=== PATIENT | female | born 1965 | race Caucasian/White ===

== ENCOUNTER 2021-01-31 09:25 | Inpatient (IN) | payer OTHER ==
[~2021-01-31] VITALS: Ht 165.1 cm; Wt 58.5 kg
[2021-01-31] VITALS (16 sets, daily range): BP systolic 90–129; BP diastolic 47–66
--- NOTE | 2021-01-31 09:25 | NUR ---
PT [id number] FRM HOME FOR ABDOMINAL DISCOMFORT, NAUSEA AND DIARRHEA. PT IS AAOX4, NOT IN RESPIRATORY DISTRESS, V/S STABLE, KEPT RESTED AND COMFORTABLE. WILL CONTINUE TO MONITOR.
--- NOTE | 2021-01-31 09:35 | NUR ---
PT SEEN AND EXAMINED BY .
--- NOTE | 2021-01-31 09:40 | NUR ---
ER PHLEB AT BEDSIDE FOR BLOOD DRAW.
[2021-01-31 10:38] LABS: BASOPHILS % (AUTO) 0.3 % (0.0-2.0); EOSINOPHILS % (AUTO) 1.7 % (0.0-6.0); HEMATOCRIT 32 % (33-45); HEMOGLOBIN 11.4 g/dL (11.5-14.8); LYMPHOCYTES # (AUTO) 0.2 /CMM (0.8-4.8); LYMPHOCYTES % (AUTO) 4.4 % (20.0-44.0); MEAN CORPUSCULAR HGB CONC 35 g/dl (31.0-36.0); MEAN CORPUSCULAR VOLUME 91 fL (82-100); MONOCYTES % (AUTO) 1.2 % (2.0-12.0); NEUTROPHILS # (AUTO) 3.5 /CMM (1.8-8.9); NEUTROPHILS % (AUTO) 92.4 % (43.0-81.0); PLATELET COUNT (AUTO) 144 /CMM (150-450); RED BLOOD CELL COUNT(AUTO) 3.55 MIL/uL (4.0-5.2); WHITE BLOOD COUNT (AUTO) 3.8 K/uL (4.3-11.0)
--- NOTE | 2021-01-31 10:42 | NUR ---
wheeled patient via [employer] accompanied by Home [employer] S[pecialists for ct.
[2021-01-31 10:52] LABS: BILIRUBIN,DIRECT 1.1 mg/dL (0.0-0.2); BILIRUBIN,TOTAL 1.5 mg/dL (0.2-1.0); CALCIUM, SERUM 7.5 mg/dL (8.5-10.1); CREATININE 0.5 mg/dL (0.6-1.3); TOTAL PROTEIN, SERUM 5.6 g/dL (6.4-8.2)
[2021-01-31 10:55] LABS: ALBUMIN 1.2 g/dL (3.4-5.0); POTASSIUM 1.4 mmol/L (3.5-5.1)
[2021-01-31] MEDS ORDERED: IV NS 0.9% 100 ML IV ONE (11:00)
[2021-01-31] MEDS ORDERED: POTASSIUM CL. PREMIX PERIPHER. 200 ML ONE (11:04)
[2021-01-31] MEDS ORDERED: Magnesium 1GM/D5W 100ML PREMIX 200 ML IV ONE (11:04)
--- NOTE | 2021-01-31 11:11 | NUR ---
CALLED DR. CRUMP
--- NOTE | 2021-01-31 11:21 | NUR ---
[facility] CALLED FIBERGLASS AUTOBODY REPAIRER PAGED.
[2021-01-31] MEDS: Magnesium 1GM/D5W 100ML PREMIX 100 ML IV SCH ×2 (11:23→12:00)
[2021-01-31] MEDS: POTASSIUM CL. PREMIX PERIPHER. 50 ML IV SCH ×11 (11:23→23:29)
[2021-01-31] MEDS ORDERED: IV NS 0.9% 1,000 ML BAG IV ONE (11:30)
--- NOTE | 2021-01-31 11:38 | NUR ---
GOT BED 256
[2021-01-31] MEDS ORDERED: METRONIDAZOLE 500MG/ NS 100ML 100 ML IV ONE (11:49)
[2021-01-31] MEDS ORDERED: IV Sodium Chloride 3% 500 ML 500 ML IV SCH (12:00)
[2021-01-31] MEDS ORDERED: PIPERACILLIN /TAZOBACTAM 3.375 G in IV D5W 50 ML IV ONE (12:00)
[2021-01-31] MEDS ORDERED: FLAGYL/NS RTU 500 MG/100 ML PIGGYBACK IV ONE (12:00)
--- NOTE | 2021-01-31 12:19 | NUR ---
CALLED DR. CRUMP [phone]
--- NOTE | 2021-01-31 12:33 | NUR ---
urine collected and sent to lab.
[2021-01-31 12:37] LABS: BILIRUBIN,URINE SMALL (NEGATIVE); COLOR,URINE YELLOW (YELLOW); LEUKOCYTE ESTERASE ,URINE Trace (NEGATIVE); NITRITE, URINE Positive (NEGATIVE); PROTEIN,URINE Trace mg/dl (NEGATIVE); UGLUCOSE Negative (NEGATIVE)
--- NOTE | 2021-01-31 12:38 | NUR ---
KENNETH CRUMP [phone]
[2021-01-31 12:45] LABS: BACTERIA,URINE Many /HPF (None Seen); SQUAMOUS EPITHELIAL CELL,UR Few /HPF (None Seen)
[2021-01-31] MEDS ORDERED: METRONIDAZOLE 500MG/ NS 100ML 500 MG in PREMIX 1 EA IV SCH ×2 (13:00→21:00)
[2021-01-31] MEDS ORDERED: IV Sodium Chloride 3% 500 ML 500 ML IV ONE (14:30)
[2021-01-31] MEDS ORDERED: Potassium Chloride 20 MEQ in IV NS 0.9% 1,000 ML IV SCH (14:30)
[2021-01-31] MEDS ORDERED: NOREPINEPHRINE 32 MG in IV NS 0.9% 218 ML IV PRN (14:30)
--- NOTE | 2021-01-31 14:43 | NUR ---
wheeled patient via gurney accompanied by RN and emt in no distress. RN assigned to patient at bedside to assume care.
--- NOTE | 2021-01-31 14:45 | NUR ---
BIOLOGY SPECIALIST RECEIVED PT FROM ER BY ANDREW WITH MONITOR. REPORT RECEIVED FROM COLOR ARTIST. PT CAME IN TO ER FOR ABDOMINAL PAIN. ADMITTED INTO ICU FOR PERFORATED BOWEL PT AWAKE AND ALERT, ABLE TO FOLLOW COMMANDS, MOVES ALL EXTREMITIES. C/O ABDOMINAL PAIN WITH MOVEMENT. ABDOMEN DISTENDED AND TENDER THROUGHOUT. PETECHIAE NOTED AROUND ABDOMEN EXTENDING FROM LOWER BREASTS TO PELVIC AREA. 3% NS INFUSING. PER LEFT FOREARM IV SITE. K RIDER INFUSING PER RIGHT A/C IV SITE.
[2021-01-31 16:14] LABS: CALCIUM, SERUM 7.4 mg/dL (8.5-10.1); CREATININE 0.4 mg/dL (0.6-1.3)
--- NOTE | 2021-01-31 16:15 | NUR ---
RN NOTES RECEIVED PT ON BED, A/Ox4, FOLLOWS COMMAND, ON 02 AT 2L , O2 SAT WNL, PT IS C/O ABDOMINAL PAIN , ABDOMEN IS DISTENDED AND HARD TO PAINFUL TO TOUCH, ON TELE SR , PT IS ABLE TO USE BEDPAN,R UPPER ARM PICC LINE SITE CLEAN,DRY AND INTACT, SR UP x3, CALL LIGHT WITHIN EASY REACH BED LOCKED AND IN LOWEST POSITION, CONTINUE TO MONITOR
[2021-01-31 16:19] LABS: POTASSIUM 1.7 mmol/L (3.5-5.1)
[2021-01-31] MEDS ORDERED: POTASSIUM CHLORIDE 10 MEQ/50 ML PREMIXED IVPB FOR PERIPHERAL LINE IV ONE (17:00)
--- NOTE | 2021-01-31 17:00 | NUR ---
RN NOTES DR LA AND DION PAGE NOITFED REGARDING K=1.7 , NEW ORDER RECEIVED , CONTINUE TO MONITOR.
[2021-01-31 17:15] LABS: CREATININE, URINE 14.8 MG/DL (30.0-125.0); URINE SODIUM, RANDOM 5 mmol/l (40-220)
[2021-01-31 17:29] LABS: CHOLESTEROL 115 mg/dL (<200); LDL 60 mg/dL (0-99); THYROID STIMULATING HORMONE 1.665 uIU/mL (0.358-3.74); TRIGLYCERIDES 161 mg/dL (30-150)
[2021-01-31 17:30] LABS: HDL CHOLESTEROL < 10 mg/dL (40-60)
[2021-01-31] MEDS ORDERED: PIPERACILLIN /TAZOBACTAM 3.375 G in IV D5W 50 ML IV SCH (18:00)
[2021-01-31] MEDS ORDERED: VANCOMYCIN 1 GM in IV D5W 250 ML IV SCH (18:00)
[2021-01-31 19:28] LABS: CALCIUM, SERUM 6.8 mg/dL (8.5-10.1); CREATININE 0.4 mg/dL (0.6-1.3)
[2021-01-31] MEDS: MEROPENEM 500 MG in IV NS 0.9% 50 ML IV SCH (21:46)
[2021-01-31 23:54] LABS: CALCIUM, SERUM 7.1 mg/dL (8.5-10.1); CREATININE 0.4 mg/dL (0.6-1.3)
[2021-01-31 23:57] LABS: POTASSIUM 2.3 mmol/L (3.5-5.1)
[2021-02-01] VITALS (37 sets, daily range): BP systolic 91–123; BP diastolic 45–75
[2021-02-01] MEDS: POTASSIUM CL. PREMIX PERIPHER. 50 ML IV SCH ×15 (00:28→22:14)
[2021-02-01] MEDS: VANCOMYCIN 0.75 GM in IV D5W 250 ML IV SCH ×3 (02:13→17:56)
--- NOTE | 2021-02-01 02:57 | NUR ---
patient in npo post mid nite to drain abdomen, poss. surgery.patients abdomen distended. patient received x 10 bags of 10 chirag of potassium. credical lab 0000 potassium 2.3 patient still receiving k-riders. sinus on monitor temp 97.4 voiding in bed adams no bowel movement
[2021-02-01] MEDS: MEROPENEM 500 MG in IV NS 0.9% 50 ML IV SCH ×3 (05:04→21:06)
[2021-02-01 05:18] LABS: BASOPHILS % (AUTO) 0.2 % (0.0-2.0); EOSINOPHILS % (AUTO) 2.4 % (0.0-6.0); HEMATOCRIT 27 % (33-45); HEMOGLOBIN 9.6 g/dL (11.5-14.8); LYMPHOCYTES # (AUTO) 0.3 /CMM (0.8-4.8); LYMPHOCYTES % (AUTO) 5.3 % (20.0-44.0); MEAN CORPUSCULAR HGB CONC 35 g/dl (31.0-36.0); MEAN CORPUSCULAR VOLUME 92 fL (82-100); MONOCYTES # (AUTO) 0.1 /CMM (0.1-1.30); MONOCYTES % (AUTO) 2.4 % (2.0-12.0); NEUTROPHILS # (AUTO) 4.5 /CMM (1.8-8.9); NEUTROPHILS % (AUTO) 89.7 % (43.0-81.0); PLATELET COUNT (AUTO) 118 /CMM (150-450); RED BLOOD CELL COUNT(AUTO) 2.93 MIL/uL (4.0-5.2)
[2021-02-01 05:27] LABS: CREATININE 0.4 mg/dL (0.6-1.3); MAGNESIUM 1.8 mg/dL (1.8-2.4)
[2021-02-01 05:32] LABS: PHOSPHORUS 0.7 mg/dL (2.5-4.9)
[2021-02-01 05:36] LABS: POTASSIUM 2.6 mmol/L (3.5-5.1)
--- NOTE | 2021-02-01 07:00 | NUR ---
RN NOTES RECEIVED PT ON BED, A/Ox4, FOLLOWS COMMAND, ON 02 AT 2L , O2 SAT WNL, ABDOMEN IS DISTENDED , HARD AND PAINFUL TO TOUCH, ON TELE SR , PT IS NPO FOR SURGERY TODAY, PT IS ABLE TO USE BEDPAN,R UPPER ARM PICC LINE SITE CLEAN,DRY AND INTACT, SR UP x3, CALL LIGHT WITHIN EASY REACH BED LOCKED AND IN LOWEST POSITION, CONTINUE TO MONITOR Addendum: 02/01/21 at 0714 by REGISTRY [facility] INPATIENT RN1 RN PLEASE DISREGARD ABOVE CHARTING ,
[2021-02-01] MEDS ORDERED: Sodium Phosphate 30 MMOL in IV NS 0.9% 250 ML IV SCH (07:30)
--- NOTE | 2021-02-01 08:39 | NUR ---
WOUND CARE CONSULT: REVIEWED CHART, NURSING DOCUMENTATION WHICH INDICATES INTACT SKIN WITH CURRENT GEMINI SCORE OF 22. WILL SEE PT PRN.
--- NOTE | 2021-02-01 08:51 | NUR ---
EXAM TO BE CANCELLED PER DR WATERS AFTER TALKING WITH ORDERING SKINNER PELTS MEI RAMIREZ
[2021-02-01] MEDS ORDERED: DIATR MEGLU/DIATRIZOATE SODIUM 30 ML BOTTLE (GASTROGRAPHIN) ONE ×2 (10:25→11:09)
[2021-02-01] MEDS ORDERED: IOHEXOL-300 100 ML VIAL IV ONE (10:25)
[2021-02-01] MEDS ORDERED: CT SWABBABLE VALVE TRANS SET 1 EA INFUS.SET MC ONE (10:26)
[2021-02-01] MEDS ORDERED: IV NS 0.9% 250 ML IV ONE (10:26)
--- NOTE | 2021-02-01 12:00 | NUR ---
RN NOTES PT REFUSED CT WITH CONTRAST ENEMA , DR Esteban LUND, CONTINUE TO MONITOR .
--- NOTE | 2021-02-01 13:00 | NUR ---
RN NOTES PT TOLERATED ORAL CONTRAST WELL, KUB WILL BE DONE, PER MD ORDER .
--- NOTE | 2021-02-01 18:00 | NUR ---
RN NOTES PT REMAINS NPO, A/Ox4, ON RA NO SOB NOTED, COMPLAIN OF ABDOMINAL PAIN AT TIME, VSS STABLE, SR UP x3, CALL LIGHT WITHIN EASY REACH, BED LOCKED AND IN LOWEST POSITION, WILL ENDORSE TO YOLK SPRAY DRIER NURSE FOR CONTINUITY OF CARE .
[2021-02-01 18:07] LABS: CALCIUM, SERUM 6.8 mg/dL (8.5-10.1); CREATININE 0.4 mg/dL (0.6-1.3)
--- NOTE | 2021-02-01 18:28 | NUR ---
RN NOTES DR LA NOTIFIED REGARDING 1800 BMP RESULT , NEW ORDER RECEIVED .
--- NOTE | 2021-02-01 20:00 | NUR ---
Received patient A/OX4.VS stable.ST 105-110.Breathing even and unlabored.On RA saturation 97%-98%.DX: Perforated Bowel/Sepsis.NPO status.Hypokalemic K+3.0 Potassium replacement in progress infusing via TYRELL PICC LINE and site intact.Will administer antibiotics as ordered. Incontinent of urine.Kept clean and dry.Patient refused villegas catheter.Patient turned in bed independently.Kept comfortable.
[2021-02-02] VITALS (20 sets, daily range): BP systolic 95–140; BP diastolic 51–78
[2021-02-02] MEDS: VANCOMYCIN 0.75 GM in IV D5W 250 ML IV SCH ×3 (01:51→17:37)
--- NOTE | 2021-02-02 02:00 | NUR ---
Patient resting in no acute distress.VS stable.Incontinent of urine and stool.Perineal care done. Anette bath done and complete linens changed.Turned and repositioned to comfort.Continue monitoring.
[2021-02-02] MEDS: MEROPENEM 500 MG in IV NS 0.9% 50 ML IV SCH ×2 (05:00→12:17)
[2021-02-02] MEDS: IV NS 0.9% 250 ML IV PRN (05:21)
--- NOTE | 2021-02-02 07:05 | NUR ---
PARCEL WRAPPER Bedside report taken from [facility] nurse Espinosa RN. pt awake, alert and oriented x4 and resting comfortable in bed. pt on room air, tolerating well. spo2 100%, lung sounds clear. pt npo at this time, bowel sounds present. pt stach on monitor hr 100-105. pt is incontinent of urine, skin intact. pt moves bue and ble 3/5 and has generalized weakness. all lines traced. all drips verified. vitals stable. safety measures in place. will continue to monitor.
--- NOTE | 2021-02-02 07:27 | NUR ---
Patient resting remains tachycardic 105-110.Tachypneic 30's.Highest temp 99.6.No nausea or vomiting noted.With tolerable abdominal pain when she moves.Abdomen distended tender on palpation.All due medications administered.Report given to day shift for DANIAL.
[2021-02-02 08:04] LABS: BASOPHILS % (AUTO) 0.2 % (0.0-2.0); HEMATOCRIT 28 % (33-45); HEMOGLOBIN 9.9 g/dL (11.5-14.8); LYMPHOCYTES # (AUTO) 0.3 /CMM (0.8-4.8); LYMPHOCYTES % (AUTO) 6.3 % (20.0-44.0); MEAN CORPUSCULAR HGB CONC 35 g/dl (31.0-36.0); MEAN CORPUSCULAR VOLUME 92 fL (82-100); MONOCYTES # (AUTO) 0.2 /CMM (0.1-1.30); MONOCYTES % (AUTO) 2.9 % (2.0-12.0); NEUTROPHILS # (AUTO) 4.9 /CMM (1.8-8.9); NEUTROPHILS % (AUTO) 88.6 % (43.0-81.0); PLATELET COUNT (AUTO) 131 /CMM (150-450); RED BLOOD CELL COUNT(AUTO) 3.08 MIL/uL (4.0-5.2); WHITE BLOOD COUNT (AUTO) 5.5 K/uL (4.3-11.0)
[2021-02-02 08:28] LABS: CALCIUM, SERUM 6.9 mg/dL (8.5-10.1); CREATININE 0.4 mg/dL (0.6-1.3)
[2021-02-02 08:32] LABS: POTASSIUM 2.8 mmol/L (3.5-5.1)
[2021-02-02 08:34] LABS: BILIRUBIN,TOTAL 0.8 mg/dL (0.2-1.0); MAGNESIUM 1.7 mg/dL (1.8-2.4); PHOSPHORUS 1.5 mg/dL (2.5-4.9)
[2021-02-02 08:35] LABS: ALBUMIN 1.1 g/dL (3.4-5.0)
[2021-02-02 09:31] LABS: BAND % (MANUAL) 1 % (0.0-5.0); EOSINOPHILS % (MANUAL) 2 % (0-4); LYMPHOCYTES % (MANUAL) 5 % (16-48); MONOCYTES % (MANUAL) 2 % (0-11.0); MYELOCYTES % 2 % (0-0); NEUTROPHILS % (MANUAL) 88 (42-76)
--- NOTE | 2021-02-02 09:35 | NUR ---
HANDLE FINISHER 0953- Radiologist Dr Stafford called with critical results regarding CT abd, results read back and verified. see MD notes/ radiology reports. Dr Martin called to inform of results, per md notify surgeon. no new orders at this time. 1010- Dr Selvin Zaldivar messaged and made aware of critical results regarding CT abd. latest labs and vitals given to md. aware k 2.8 and that 6 bags kcl ordered, 1 gm mag ordered and na phos ordered by dr martin, ok per md. no new orders at this time. 1025- Dr Herrmann made aware of critical results regarding CT abd. aware that Dr Martin and Dr Zaldivar aware, ok per md. no new orders at this time.
[2021-02-02] MEDS: POTASSIUM CL. PREMIX PERIPHER. 50 ML IV SCH ×6 (09:50→14:35)
[2021-02-02] MEDS: IV NS 0.9% 1,000 ML IV PRN (11:15)
[2021-02-02] MEDS: Magnesium 1GM/D5W 100ML PREMIX 100 ML IV SCH ×2 (14:34→16:03)
[2021-02-02 15:04] LABS: CALCIUM, SERUM 6.5 mg/dL (8.5-10.1); CREATININE 0.4 mg/dL (0.6-1.3); POTASSIUM 4.1 mmol/L (3.5-5.1)
--- NOTE | 2021-02-02 15:39 | NUR ---
WHEEL FITTER pt had bm x1 moderate size brown and loose. pt bathed and cleaned. linen change done. skin check done with charge nurse Nohemy GONZALEZ, no new wounds noted. skin intact. pt tolerated well. vitals stable. safety measures in place. pt was informed that per surgeon he wants an ngt to be inserted and put to suction to help relieve gas and abd distention and that pt was to go to surgery 02/03/2021, pt refused ngt placement dispite education on importance of tube placement, charge nurse at bedside discussing the placement of the ngt with pt, pt still refuses ngt placement. Dr Sohail Zaldivar aware, ok per . no new orders at this time.
[2021-02-02] MEDS ORDERED: Sodium Phosphate 15 MMOL in IV NS 0.9% 245 ML IV SCH (17:30)
[2021-02-02 17:58] LABS: MAGNESIUM 2.5 mg/dL (1.8-2.4); PHOSPHORUS 1.4 mg/dL (2.5-4.9)
--- NOTE | 2021-02-02 18:35 | NUR ---
NAIL CUTTER pt signed consent for exlap procedure per dr barba,consent for procedure, consent for anesthesia and consent for blood transfusion signed by pt, surgery packet checked and reviewed with charge nurse Nohemy GONZALEZ and placed in pt chart.
[2021-02-02] MEDS ORDERED: ANESTHESIA TRAY IN PYXIS 1 EA TRAY MC ONE (18:59)
[2021-02-02] MEDS ORDERED: HYDROMORPHONE INJ 2 MG/ML DISP.SYRIN ONE (18:59)
[2021-02-02] MEDS ORDERED: MIDAZOLAM HCL 2 MG/2ML VIAL ONE (18:59)
[2021-02-02] MEDS ORDERED: ROCURONIUM BROMIDE 50 MG/5 ML ONE ×2 (19:00→22:04)
--- NOTE | 2021-02-02 19:03 | NUR ---
RESIDENTIAL SOLAR CONSULTANT Bedside report given to [facility] nurse Jensen GONZALEZ. pt awake, alert and resting comfortable in bed. pt on room air, tolerating well. all lines traced. all drips verified. safety measures in place. no signs of acute distress at this time. pt to be taken to OR shortly for ex lap procedure, all consents signed in chart, endorsed to [facility] nurse.
--- NOTE | 2021-02-02 19:05 | NUR ---
RECEIVED PT ON BED AWAKE FLAT AFFECT, AA/O X3 ABLR TO VERBALIZED NEEDS ON ROOM AIR SPO2 98% NO COMPLAINT OF SOB AND PAIN, TELE MONITOR READ SINUS TACHY 110'S HAVE DISTENDED ABDOMEN, HAVE TYRELL PICC WITH ONGOING Na-PHOS @ 63.33 ML/HR INFUSING WELL AND NS @ 125ML/HR INFUSING WELL, BED ON LOWEST POSITION AND LOCKED SIDE RAILS UP X 2 CALL LIGHT WITHIN REACH WILL CONT TO MONITOR
--- NOTE | 2021-02-02 19:30 | NUR ---
OR STAFF CAME TO RIGGER CHIEF TH PT FOR PROCEDURE TONHAILEY CRUMP ALSO ON BEDSIDE AND EXPLAIN THE PT THE PROCEDURE, PT VERBALIZED UNDERSTANDING WITHH AA/O X3, V/S CHECKED AND RECORDED TEMP 97.8 SPO2 99% BP 104/62 HR 109, CONSENT FORM AND PRE OP CHECKLIST ON CHART, ON ROUTE TO OR VIA HOSPITAL BED ON ACLS PROTOCOL.
[2021-02-02] MEDS ORDERED: LIDOCAINE 1% INJ 50 ML MDV IJ ONE (20:06)
[2021-02-02] MEDS ORDERED: METHYLENE BLUE 10 ML VIAL ONE (21:00)
[2021-02-02] MEDS ORDERED: Sodium Phosphate 30 MMOL in IV NS 0.9% 250 ML IV SCH (21:00)
[2021-02-02] MEDS ORDERED: NOREPINEPHRINE 8MG/250ML RTU 250 ML IV ONE (23:56)
[2021-02-03] VITALS (87 sets, daily range): BP systolic 83–151; BP diastolic 42–89
[2021-02-03] MEDS: MEROPENEM 500 MG in IV NS 0.9% 50 ML IV SCH ×4 (00:14→20:36)
--- NOTE | 2021-02-03 00:37 | NUR ---
PT IS STILL ON OPERATING ROOM FOR HER SURGERY
[2021-02-03] MEDS: NOREPINEPHRINE 8 MG in IV NS 0.9% 242 ML IV PRN ×2 (01:00→08:51)
--- NOTE | 2021-02-03 01:00 | NUR ---
INTUBATED PT WITH ETT 7.0 SECURED @ 22 CM LIPLINE WAS TRANSPORTED FROM PACU TO ICU. PLACED ON VENT WITH THE SETTINGS OF AC 12,450, 100% PT IS SEDATED. EQUAL BILATERAL BREATH SOUNDS AND CHEST RISE NOTED. SUCTIONED SMALL AMOUNT OF WHITE THIN SECRETIONS. NO RESPIRATORY DISTRESS NOTED AT THIS TIME. VENT PLUGGED INTO RED OUTLET, ALARMS ON AND AUDIBLE. WILL CONTINUE TO MONITOR T/O SHIFT.
--- NOTE | 2021-02-03 01:00 | NUR ---
RECEIVED PT FROM OR VIA HOSPITAL BED INTUBATED AND ON VENT WITH SETTING AC 12 TV 450 FIO2 100 0 PEEP WITH SPO2 100% ACCOMPANIED BY ANESTHESIOLOGIST AND OR NURSE, PT STILL SEDATED FROM SURGERY SEDATION, HOOKED TO BEDSIDE MONITOR V/S CHECKED AND RECORDED, PT HAVE 2 BENITA DRAIN ON RIGHT LOWER ABDOMEN WITH SANGUINEOUS FLUID DRAINING, PT ALSO HAVE COLOSTOMY BAG WITH MINIMAL LIQUID BOWEL MOVEMENT NOTED, PT HAVE ZACARIAS CATHETER WITH YELLOW URINE ON THE BAG AND GREENISH FLUID ON THE TUBING,PATIENT HAVE ONGOING LEVOPHED @ 0.1 MCG/KG/MIN INFUSING WELL, SECURE AN ORDER FROM ANESTHESIOLOGIST TO START BILATERAL WRIST SOFT RESTRAINTS FOR SELF EXTUBATION PRECAUTION, AND DIPRIVAN DRIP TO TITRATE PER PROTOCOL ,BED ON LOWEST POSITION AND LOCKED SIDE RAILS UP X2 WILL CONT TO MONITOR THE PT
[2021-02-03] MEDS: IV NS 0.9% 1,000 ML IV PRN ×3 (01:13→22:32)
[2021-02-03] MEDS ORDERED: PROPOFOL 100 ML IV PRN (01:30)
--- NOTE | 2021-02-03 02:00 | NUR ---
DR. CRUMP SEEN THE PT AND ORDER TO CONTINUE ALL MEDICATION PRE SURGERY NOTED AND CARRIED OUT Addendum: 02/03/21 at 0250 by THAO SUNG RN ALSO INFORMED HOSPITALIST ABOUT THE SURGERY OF THE PT AND CURRENT CONDITION
[2021-02-03 02:07] LABS: ABG BASE EXCESS -5.6 mmol/L; ABG OXYGEN SATURATION 99.7 % (92.0-98.5); ABG PCO2 56.7 mmHg (35.0-45.0); ABG PO2 528.4 mmHg (75.0-100.0); AaDO2 127.9 mmHg; COHb 0.5 % (0.5-1.5); MetHb 0.2 % (0.0-1.5); SITE, ABG Right Radial; VT, ABG 450 mL
[2021-02-03] MEDS: VANCOMYCIN 0.75 GM in IV D5W 250 ML IV SCH ×2 (02:10→09:40)
[2021-02-03 04:22] LABS: BASOPHILS % (AUTO) 0.2 % (0.0-2.0); HEMATOCRIT 24 % (33-45); LYMPHOCYTES # (AUTO) 0.3 K/uL (0.8-4.8); LYMPHOCYTES % (AUTO) 6.6 % (20.0-44.0); MEAN CORPUSCULAR HGB CONC 34 g/dl (31.0-36.0); MEAN CORPUSCULAR VOLUME 95 fL (82-100); MONOCYTES # (AUTO) 0.2 K/uL (0.1-1.30); MONOCYTES % (AUTO) 3.7 % (2.0-12.0); NEUTROPHILS # (AUTO) 4.2 K/uL (1.8-8.9); NEUTROPHILS % (AUTO) 89.5 % (43.0-81.0); PLATELET COUNT (AUTO) 131 K/uL (150-450); RED BLOOD CELL COUNT(AUTO) 2.49 MIL/uL (4.0-5.2); WHITE BLOOD COUNT (AUTO) 4.7 K/uL (4.3-11.0)
[2021-02-03 04:33] LABS: CALCIUM, SERUM 6.2 mg/dL (8.5-10.1); CREATININE 0.8 mg/dL (0.6-1.3); POTASSIUM 4.4 mmol/L (3.5-5.1)
[2021-02-03 05:35] LABS: PHOSPHORUS 5.5 mg/dL (2.5-4.9)
--- NOTE | 2021-02-03 06:42 | NUR ---
PT ON BED STILL SEDATED FROM SURGERY SEDATION ON ETT/VENT SETTING PER MD FIO2 40% SPO2 100% NO PAIN NOTED, TELEMONITOR READS SINUS RHTHM 95, STILL ON LEVOPHED@0.2 MCG/KG/MIN WITH LATEST BP 115/71, BENITA DRAIN X2 ON RIGHT LOWER ABDOMEN DRAINING SANGINEOUS FLUID OUTPUT 200 ML, ZACARIAS CATHETER HAVE GREENISH FLUID OUTPUT ON TUBING, BED ON LOWEST POSITION AND LOCKED SIDE RAILS UP X 2 CALL LIGHT WITHIN REACH WILL CONT TO MONITOR
--- NOTE | 2021-02-03 07:40 | NUR ---
ICU/RN PT IS INTUBATE ON THE VENT AC MODE ,FIO2-60%.SAT O2-100%.NOT SEDATED.RESPONDING ON PAIN STIMULATION.POST OP LAST NIGHT.ON LEVOPHED DRIP.IV FLUIDS.RIGHT UPPER ARM PICC LINE.WITH NO BLOOD RETURN FROM 3 PORTS.NG TUBE CONNECTED TO SUCTION WITH BLOODY OUTPUT. HAS 2 BENITA DRAINAGES WITH BLOODY OUTPUT.GENERALIZED EDEMA PRESENT.NEW COLOSTOMY DRAINING WITH BROWN LIQUID STOOL.F/C DRAINING WITH MINIMAL AMOUNT OF GREEN URINE. LABS REVIEW.MF AWARE.AFEBRILE.NO PAIN REPORTED AT THIS TIME.
[2021-02-03] MEDS ORDERED: MEROPENEM 500 MG in IV NS 0.9% 50 ML IV SCH (08:00)
[2021-02-03] MEDS ORDERED: IV NS 0.9% 1,000 ML IV ONE (08:30)
[2021-02-03] MEDS ORDERED: TPN/PPN PER PHARMACY XX PRN (09:00)
[2021-02-03 09:42] LABS: ABG BASE EXCESS -8.2 mmol/L; ABG OXYGEN SATURATION 98.8 % (92.0-98.5); ABG PCO2 28.2 mmHg (35.0-45.0); ABG PH 7.375 (7.350-7.450); ABG PO2 136.3 mmHg (75.0-100.0); AaDO2 116.5 mmHg; COHb 0.8 % (0.5-1.5); MetHb 0.5 % (0.0-1.5); O2Hb 97.5 % (94.0-97.0); PEEP,BG 5 cm H2O; SITE, ABG Right Radial; VENT MODE, BG SIMV 4 PSV 15
--- NOTE | 2021-02-03 10:00 | NUR ---
ICU.RN PT IS EXTUBATED.PLACED ON 3L N/C . SAT O2-98%. AWAKE,ALERT.NO PAIN REPORTED AT THIS TIME. 1 L NS BOLUS GIVEN ORDERED. CONTINUE MONITORING.
--- NOTE | 2021-02-03 10:10 | NUR ---
pt extubated per MD order. zero distress noted. strong cough. placed on 3lpm n/c. RN aware.
[2021-02-03] MEDS ORDERED: DEXTROSE 50%-WATER 50 ML DISP.SYRIN IV PRN (10:30)
[2021-02-03] MEDS: FLUCONAZOLE IN NS 200 MG in PREMIX 1 EA IV SCH (10:55)
[2021-02-03] MEDS ORDERED: DC PROPOFOL WHEN EXTUBATED XX SCH (11:00)
[2021-02-03] MEDS: BLOOD SUGAR DIAGNOSTIC 1 EACH STRIP IN SCH ×2 (11:49→17:21)
--- NOTE | 2021-02-03 12:10 | NUR ---
ICU/RN TPN STARTED ORDERED. DUE MEDS ARE GIVEN ORDERED.
[2021-02-03] MEDS: INSULIN REGULAR, HUMAN 100 UNIT/ML 3 ML VIAL SQ PRN ×2 (12:42→18:21)
[2021-02-03] MEDS ORDERED: TPN BAG #1 IV SCH (14:00)
[2021-02-03 14:07] LABS: *SPE A/G RATIO 0.5 (0.7-1.7); *SPE ALBUMIN 1.5 g/dL (2.9-4.4); *SPE ALPHA-1-GLOBULIN 0.5 g/dL (0.0-0.4); *SPE ALPHA-2-GLOBULIN 1.2 g/dL (0.4-1.0); *SPE BETA GLOBULIN 0.7 g/dL (0.7-1.3); *SPE M-SPIKE Not Observed g/dL (Not Observed); *SPEGAMMA GLOBULIN 0.6 g/dL (0.4-1.8)
--- NOTE | 2021-02-03 19:30 | NUR ---
RN NOTES Received patient in bed AxO3 able to make needs known. Continues on O2, 3Lpm via NC saturating 97% at this time. breathing normal no SOB noted. Patient denies any pain or discomfort. Tele monitor reading SR HR in 90's. Lt Nars NG tube intact on low intermittent suction. TYRELL PICC line with ongoing NS @100ML/HR and TPN @ 40 infusing well, BENITA drain patent/Intact. Colotomy intact noted with minimal drainage. F/C intact dark urine draining via gravity. All safety measures in place, call light within reach. Will cont to monitor for belen.
[2021-02-03] MEDS: MORPHINE SULFATE INJ 2 MG/ML DISP.SYRIN IV PRN (22:28)
[2021-02-04] VITALS (84 sets, daily range): BP systolic 96–142; BP diastolic 44–74
[2021-02-04] MEDS: BLOOD SUGAR DIAGNOSTIC 1 EACH STRIP IN SCH ×4 (01:23→18:09)
[2021-02-04] MEDS: NOREPINEPHRINE 8 MG in IV NS 0.9% 242 ML IV PRN (01:25)
[2021-02-04] MEDS: INSULIN REGULAR, HUMAN 100 UNIT/ML 3 ML VIAL SQ PRN ×3 (01:32→13:01)
[2021-02-04 04:46] LABS: BASOPHILS % (AUTO) 0.1 % (0.0-2.0); EOSINOPHILS % (AUTO) 0.4 % (0.0-6.0); LYMPHOCYTES # (AUTO) 0.4 K/uL (0.8-4.8); LYMPHOCYTES % (AUTO) 12.2 % (20.0-44.0); MEAN CORPUSCULAR HGB CONC 35 g/dl (31.0-36.0); MEAN CORPUSCULAR VOLUME 94 fL (82-100); MONOCYTES # (AUTO) 0.2 K/uL (0.1-1.30); MONOCYTES % (AUTO) 5.9 % (2.0-12.0); NEUTROPHILS # (AUTO) 2.3 K/uL (1.8-8.9); NEUTROPHILS % (AUTO) 81.4 % (43.0-81.0); RED BLOOD CELL COUNT(AUTO) 2.05 MIL/uL (4.0-5.2); WHITE BLOOD COUNT (AUTO) 2.9 K/uL (4.3-11.0)
[2021-02-04 04:51] LABS: HEMATOCRIT 19 % (33-45); HEMOGLOBIN 6.6 g/dL (11.5-14.8)
--- NOTE | 2021-02-04 04:55 | NUR ---
RN NOTES Critical lab value reported by Renetta Hbg-6.6, Hct-19, Calcium-5.7. MD Norman notified new order received noted and carried out.
[2021-02-04] MEDS: MEROPENEM 500 MG in IV NS 0.9% 50 ML IV SCH ×3 (05:04→20:30)
[2021-02-04 05:22] LABS: CREATININE 1.2 mg/dL (0.6-1.3); MAGNESIUM 1.6 mg/dL (1.8-2.4); POTASSIUM 2.9 mmol/L (3.5-5.1)
[2021-02-04 05:23] LABS: PLATELET COUNT (AUTO) 129 K/uL (150-450)
[2021-02-04 05:27] LABS: CALCIUM, SERUM 5.7 mg/dL (8.5-10.1)
[2021-02-04 05:38] LABS: BAND % (MANUAL) 3 % (0.0-5.0); LYMPHOCYTES % (MANUAL) 7 % (16-48); MONOCYTES % (MANUAL) 6 % (0-11.0); NEUTROPHILS % (MANUAL) 84 (42-76)
--- NOTE | 2021-02-04 06:31 | NUR ---
RN NOTES Patient continues on NGT intermittent suction. BENITA tube intact darning well, F/C draining greenish urine. Breathing normal no SOB noted. No s/s of distress noted. AM care provided. Turning repositioning as tolerated. During shift PRN Morphine given noted be effective. TYRELL PICC line intact fluids running well. All safety measures in place, call light within reach. Will endorse to AM nurse for DANIAL.
[2021-02-04] MEDS: MORPHINE SULFATE INJ 2 MG/ML DISP.SYRIN IV PRN (07:38)
--- NOTE | 2021-02-04 08:05 | NUR ---
OPENING NOTE: REPORT RECEIVED FROM KATERINE GONZALEZ. PER REPORT PATIENT HAD SURGERY ON 02/03/21. PT HAS 2 JPS, OBSERVED AND COMPRESSED PER MD ORDERS, COLOSTOMY INTACT AND DRAINING LIQUID BROWN BM. ZACARIAS CATHETER PATENT, DRAINING GREEN URINE FROM DYE DURING SURGERY. PT C/O PAIN RATING 7/10, PAIN MEDICATION GIVEN PER MD ORDERS. NG TUBE TO LIS. ORAL CARE DONE, LIP BALM APPLIED TO LIPS. PT IS ALERT OX4 AND COOPERATIVE. PT CHECKED ON HOURLY AND PRN BY NURSING STAFF.
[2021-02-04] MEDS ORDERED: Calcium Gluconate 1GM/10ML 4.65 MEQ in IV D5W 50 ML IV ONE (08:30)
[2021-02-04] MEDS: IV NS 0.9% 250 ML IV PRN (09:19)
[2021-02-04] MEDS: IV NS 0.9% 1,000 ML IV PRN ×2 (09:19→21:31)
[2021-02-04] MEDS: POTASSIUM CL. PREMIX PERIPHER. 50 ML IV SCH ×8 (09:38→17:58)
[2021-02-04] MEDS ORDERED: VANCOMYCIN 0.75 GM in IV D5W 250 ML IV SCH (10:00)
[2021-02-04] MEDS: FLUCONAZOLE IN NS 200 MG in PREMIX 1 EA IV SCH (10:32)
--- NOTE | 2021-02-04 11:30 | NUR ---
PER PHARMACY, DO NOT GIVE 10AM VANCO DOSE D/T TROUGH OF 22
[2021-02-04] MEDS: Magnesium 1GM/D5W 100ML PREMIX 100 ML IV SCH ×2 (11:56→13:02)
[2021-02-04] MEDS ORDERED: TPN BAG #2 IV SCH (14:00)
[2021-02-04] MEDS: FAT EMULSION 20% 500 ML in PREMIX 1 EA IV SCH (18:09)
--- NOTE | 2021-02-04 18:57 | NUR ---
END OF SHIFT NOTE: PT HAD A FAIRLY UNEVENTFUL SHIFT. OUTPUT TOTALS FOR TODAY: ZACARIAS CATHETER = 750ML BENITA #1 = 85ML BENITA #2 = 50 ML OSTOMY = 25ML NG TUBE = 750ML GIVEN THIS SHIFT: 80MEQ POTASSIUM CHLORIDE IV 2GM MAG TPN INCREASED TO 50ML/HR LIPIDS STARTED AAT 1800 IVF NS INCREASED TO 125ML/HR PT ONLY REQUIRED PAIN MEDICATION X1 TODAY. PT REFUSED TO BE REPOSITIONED SEVERAL TIMES TODAY. RN INSTRUCTED PT ON SPLINTING HER ABD WHEN COUGHING. PT REMAINED ALERT OX4 TODAY WITHOUT DIFFICULTY. PT CHECKED ON HOURLY AND PRN BY NURSING STAFF.
--- NOTE | 2021-02-04 19:20 | NUR ---
FRAME REPAIRER RCD PT S/P 02/03 LAPAROSCOPIC CONVERTED TO MINI OPEN EXPLORATION, SIGMOIDECTOMY AND LOW ANTERIOR RESECTION, LEFT SIDED TUBAL LIGATION, FLEXIBLE CYTOSCOPY AND STENT PLACEMENT. PT IS A/O x2. RESISTANT TO CARE. NSR ON MONITOR. BENITA #1 DRAINING SANGUINEOUS OUTPUT BENITA #2 SEROSANGUINEOUS OUTPUT NOTED. PT NPO. TYRELL PICC LINE DIFFICULT TO FLUSH NO BLOOD RETURN. NS @ 125 ML/HR, TPN @ 50 ML/HR, LIPIDS @ 20 ML/HR, NS @ TKO RUNNING. ATTEMPTED TO ASSESS PT AND PT SAID IT WAS TIME FOR HER TO SLEEP. EXPLAINED TO PT IT WAS NECESSARY TO ASSESS HER AND TO CHECK HER LINES AND DRAINS. PT BECAME UPSET AND REFUSED A FULL SKIN ASSESSMENT. NURSING UNABLE TO COMPLETE ASSESSMENT.
[2021-02-04] MEDS: VANCOMYCIN 0.75 GM in IV D5W 250 ML IV SCH (21:31)
--- NOTE | 2021-02-04 22:00 | NUR ---
TANK STAVE ASSEMBLER PT REFUSED TO BE TURNED AND REPOSITIONED. EDUCATED ON THE RISKS OF DEVELOPING BED SORES. PT STATES SHE WILL GO TO SLEEP NOW.
[2021-02-05] VITALS (27 sets, daily range): BP systolic 127–157; BP diastolic 57–88
--- NOTE | 2021-02-05 | NUR ---
HOSPITAL CLINIC ASSISTANT PT REFUSED TO BE TURNED AND REPOSITIONED. EDUCATED ON THE RISKS OF DEVELOPING BED SORES.
[2021-02-05] MEDS: BLOOD SUGAR DIAGNOSTIC 1 EACH STRIP IN SCH ×5 (00:05→23:36)
--- NOTE | 2021-02-05 00:05 | NUR ---
ANCHOR OPERATOR PT DECLINED ACCU CHECK, SHE IS NOT DIABETIC. EXPLAINED TO PT IT IS NEEDED BECAUSE OF THE MEDICATION SHE IS ON. BUT SHE CONTINUED TO REFUSE.
--- NOTE | 2021-02-05 02:00 | NUR ---
MOBILE HOME PARK MANAGER PT REFUSED TO BE TURNED AND REPOSITIONED. EDUCATED ON THE RISKS OF DEVELOPING BED SORES. PT STATES SHE WILL WAIT FOR THE OTHER NURSE.
--- NOTE | 2021-02-05 04:00 | NUR ---
HEAD OF CONSERVATION PT REFUSED TO BE TURNED AND REPOSITIONED. EDUCATED ON THE RISKS OF DEVELOPING BED SORES. PT STATES SHE KNOWS WHAT SHE IS DOING.
[2021-02-05] MEDS: MEROPENEM 500 MG in IV NS 0.9% 50 ML IV SCH ×3 (04:15→21:00)
[2021-02-05 05:39] LABS: CALCIUM, SERUM 6.5 mg/dL (8.5-10.1); CREATININE 1.1 mg/dL (0.6-1.3); MAGNESIUM 2.1 mg/dL (1.8-2.4); PHOSPHORUS 2.3 mg/dL (2.5-4.9); POTASSIUM 3.1 mmol/L (3.5-5.1)
--- NOTE | 2021-02-05 05:50 | NUR ---
SOC ANALYST PT CONTINUED TO DECLINE TO BE TURNED AND REPOSITIONED. ALSO REFUSED PROPER ASSESSMENT.
--- NOTE | 2021-02-05 06:36 | NUR ---
SITE TECHNICIAN BENITA 1 30 ML OUTPUT BENITA 2 30 ML OUTPUT
[2021-02-05] MEDS: IV NS 0.9% 1,000 ML IV PRN (06:50)
--- NOTE | 2021-02-05 07:15 | NUR ---
BUSINESS INTELLIGENCE REPORTING ANALYST OPENING NOTE RECEIVED REPORT FROM PM NURSE. PT S/P SURG 02/03 LAPAROSCOPIC CONVERTED TO MINI OPEN EXPLORATION, SIGMOIDECTOMY AND LOW ANTERIOR RESECTION, LEFT SIDED TUBAL LIGATION, FLEXIBLE CYTOSCOPY AND STENT PLACEMENT. PT IS A/O x2. RESISTANT TO CARE.REFUSED TO TURN AND REPOSITION AND SCD,SKIN ASSESSMENT. NSR ON MONITOR. BENITA #1 BENITA #2 SEROSANGUINEOUS OUTPUT NOTED. PT NPO.ON LOW INTERMITTENT NGT SUCTION WITH GREENISH OUTPUT. TYRELL PICC LINE NO BLOOD RETURN. NS @ 125 ML/HR, TPN @ 50 ML/HR, LIPIDS @ 20 ML/HR, NS @ TKO RUNNING.SAFETY AND ASPIRATION MEASURES IN PLACE.BED IS LOW AND IN LOCKED POSITION.CALL LIGHT IN REACH.BED ALARM ON.SRX3.WILL CONTINUE TO MONITOR.
--- NOTE | 2021-02-05 07:20 | NUR ---
BOWSTRING MAKER PT DENIED PAIN ALL THROUGHOUT SHIFT. DECLINED PAIN MEDS.
[2021-02-05] MEDS ORDERED: Sodium Phosphate 30 MMOL in IV NS 0.9% 250 ML IV SCH (07:30)
[2021-02-05] MEDS: POTASSIUM CL. PREMIX PERIPHER. 50 ML IV SCH ×4 (08:13→16:26)
[2021-02-05] MEDS: IV LR 1000 ML 1,000 ML IV PRN (08:13)
[2021-02-05 08:35] LABS: BASOPHILS % (AUTO) 0.1 % (0.0-2.0); EOSINOPHILS % (AUTO) 1.7 % (0.0-6.0); HEMATOCRIT 22 % (33-45); HEMOGLOBIN 7.5 g/dL (11.5-14.8); LYMPHOCYTES # (AUTO) 0.4 K/uL (0.8-4.8); LYMPHOCYTES % (AUTO) 11.2 % (20.0-44.0); MEAN CORPUSCULAR HGB CONC 35 g/dl (31.0-36.0); MEAN CORPUSCULAR VOLUME 91 fL (82-100); MONOCYTES # (AUTO) 0.3 K/uL (0.1-1.30); MONOCYTES % (AUTO) 9.2 % (2.0-12.0); NEUTROPHILS # (AUTO) 2.8 K/uL (1.8-8.9); NEUTROPHILS % (AUTO) 77.8 % (43.0-81.0); PLATELET COUNT (AUTO) 90 K/uL (150-450); RED BLOOD CELL COUNT(AUTO) 2.36 MIL/uL (4.0-5.2); WHITE BLOOD COUNT (AUTO) 3.6 K/uL (4.3-11.0)
--- NOTE | 2021-02-05 09:30 | NUR ---
HYDRATE CONTROL TENDER NOTE seen by ,updated about patient condition with labs and decreased platelet count.WILL CONTINUE TO MONITOR.
[2021-02-05 09:53] LABS: EOSINOPHILS % (MANUAL) 2 % (0-4); LYMPHOCYTES % (MANUAL) 8 % (16-48); MONOCYTES % (MANUAL) 7 % (0-11.0); NEUTROPHILS % (MANUAL) 83 (42-76)
[2021-02-05] MEDS ORDERED: TPN IV SCH (10:00)
[2021-02-05] MEDS: FLUCONAZOLE IN NS 200 MG in PREMIX 1 EA IV SCH (10:31)
--- NOTE | 2021-02-05 11:48 | NUR ---
RISK CONTROL MANAGER NOTE SEEN BY ,UPDATED ABOUT PATIENT CONDITIN.RECEIVED ORDER TO DECREASE LR RATE TO 50ML/HR.NEBULIZATIONS PRN Q6H,INCENTIVE SPIROMETRY.WILL CONTINUE TO MONITOR.
[2021-02-05] MEDS ORDERED: ALBUTEROL FS 2.5 MG/0.5 ML VIAL.NEB NEB PRN (12:00)
[2021-02-05] MEDS: IPRATROPIUM NEB FS 0.5 MG/2.5 ML AMPUL.NEB NEB PRN (14:08)
[2021-02-05] MEDS: PANTOPRAZOLE 40 MG VIAL IV SCH (14:30)
--- NOTE | 2021-02-05 15:25 | NUR ---
ASSISTANT BRAND MANAGER NOTE SEEN BY PROCESS PLANNER MEI MADE AWARE ABOUT NGT SECRETIONS MORE THAN 750 ML.AND DRAIN AMOUNT TOO.WILL CONTINUE TO MONITOR.
--- NOTE | 2021-02-05 16:00 | NUR ---
BEER RUNNER NOTE ROUTE CONTRACTOR AUDREY BAIN MADE AWARE ABOUT WOUND CULTURE RESULT.WILL CONTINUE TO MONITOR.
--- NOTE | 2021-02-05 16:42 | NUR ---
HEAD INSPECTOR AND CENTER MARKER NOTE PATIENT REFUSED TURN AND REPOSITION.EDUCATED THE IMPORTANCE OF TURN AND REPOSITION AND DEVELOPMENT OF PRESSURE INJURY.PATIENT STATED THAT " I AM COMFORTABLE THIS WAY NOW,I DONT WANT TO TURN,I WANT TO TAKE SOME REST".OFFERED PAIN MEDS IF PATIENT HAS PAIN WHILE TURNING.REFUSED PAIN MEDS.UNABLE TO ASSESS BACK AND GIVE BACK CARE.PATIENT AGREED TO DO SKIN CARE IN FRONT AREA AND PARTIAL LINEN CHANGE DONE WITH OTHER CARE.WILL CONTINUE TO MONITOR.
--- NOTE | 2021-02-05 18:51 | NUR ---
TRUST VAULT CLERK CLOSING NOTE PATIENT IS ALERT ,ORIENTED.ON O2 VIA NASAL CANULA 2L.NO SOB NO DISTRESS NOTED.REFUSING TURN AND REPOSITION.TPN AND IVF INFUSING.WILL ENDORSE TO PM NURSE FOR DANIAL.
--- NOTE | 2021-02-05 19:45 | NUR ---
MEDICAL RECORDS ANALYST NOTE RECEIVED PT IN BED RESTING AND IN SEMI-FOWLERS POSITION. A/O X3 . PATIENT DENIES ANY PAIN AT THIS TIME. ON MONITOR SR/ST. ON 2L OF O2 VIA NASAL CANNULA. ZACARIAS CATH DRAINING YELLOW URINE BY GRAVITY. COLOSTOMY BAG INTACT AND IN PLACE. TYRELL PICC PATENT INTACT AND FLUSHING WELL. PT ON TPN AND LR AT 50 ML/HR. SAFETY MEASURES IN PLACE, CALL LIGHT WITHIN REACH. BED LOCKED AND IN THE LOWEST POSITION. WILL CONT. TO MONITOR PT.
[2021-02-06] VITALS (25 sets, daily range): BP systolic 110–153; BP diastolic 57–102
[2021-02-06] MEDS: INSULIN REGULAR, HUMAN 100 UNIT/ML 3 ML VIAL SQ PRN ×4 (00:46→23:42)
[2021-02-06] MEDS: IV LR 1000 ML 1,000 ML IV PRN (04:00)
[2021-02-06] MEDS: IV NS 0.9% 250 ML IV PRN (04:01)
[2021-02-06] MEDS: MEROPENEM 500 MG in IV NS 0.9% 50 ML IV SCH ×3 (05:06→20:13)
[2021-02-06] MEDS ORDERED: TPN BAG#4 IV SCH (06:00)
[2021-02-06 06:06] LABS: CREATININE 1.1 mg/dL (0.6-1.3); MAGNESIUM 1.7 mg/dL (1.8-2.4); PHOSPHORUS 3.6 mg/dL (2.5-4.9)
[2021-02-06 06:11] LABS: CALCIUM, SERUM 6.6 mg/dL (8.5-10.1)
[2021-02-06 06:15] LABS: POTASSIUM 2.7 mmol/L (3.5-5.1)
[2021-02-06] MEDS: BLOOD SUGAR DIAGNOSTIC 1 EACH STRIP IN SCH ×4 (06:20→23:41)
--- NOTE | 2021-02-06 07:21 | NUR ---
RN NOTE PT REMAINED STABLE. DECLINED PAIN OR DISCOMFORT THROUGHOUT THE NIGHT. REPORT GIVEN TO AM RN FOR K+ TO BE STARTED. PT CLEANED AND TOLERATED WITH NO PAIN. PT COMPLIANT WITH PATIENT CARE DURING SHIFT. ENDORSED TO AM RN FOR DANIAL
--- NOTE | 2021-02-06 07:30 | NUR ---
RN RECEIVING NOTES RECEIVED PATIENT AWAKE ALERT AND ORIENTED. ON 2L NC SATURATING 98% AND NOT IN ANY RESPIRATORY DISTRESS. ST 110 ON BEDSIDE MONITOR. COLOSTOMY NOTED. ZACARIAS DRAINING BY GRAVITY. NG LEFT NARE CONNECTED TO LOW INTERMITTENT SUCTION. PICC LINE TYRELL WITH TPN AT 60ML/HR IVF AT 50ML/HR. SAFETY CHECKS IN PLACE. WILL CONTINUE TO MONITOR.
[2021-02-06] MEDS: POTASSIUM CL. PREMIX PERIPHER. 50 ML IV SCH ×6 (07:57→12:10)
[2021-02-06] MEDS ORDERED: FUROSEMIDE 20 MG/2 ML VIAL IV ONE (08:00)
[2021-02-06] MEDS: Magnesium 1GM/D5W 100ML PREMIX 100 ML IV SCH ×2 (08:09→09:07)
[2021-02-06 08:24] LABS: BASOPHILS % (AUTO) 0.2 % (0.0-2.0); EOSINOPHILS % (AUTO) 0.5 % (0.0-6.0); HEMATOCRIT 22 % (33-45); HEMOGLOBIN 7.7 g/dL (11.5-14.8); LYMPHOCYTES # (AUTO) 0.3 K/uL (0.8-4.8); LYMPHOCYTES % (AUTO) 13.7 % (20.0-44.0); MEAN CORPUSCULAR HGB CONC 34 g/dl (31.0-36.0); MEAN CORPUSCULAR VOLUME 91 fL (82-100); MONOCYTES # (AUTO) 0.3 K/uL (0.1-1.30); MONOCYTES % (AUTO) 10.6 % (2.0-12.0); NEUTROPHILS # (AUTO) 1.9 K/uL (1.8-8.9); PLATELET COUNT (AUTO) 113 K/uL (150-450); RED BLOOD CELL COUNT(AUTO) 2.46 MIL/uL (4.0-5.2); WHITE BLOOD COUNT (AUTO) 2.5 K/uL (4.3-11.0)
[2021-02-06 08:49] LABS: CALCIUM, SERUM 6.6 mg/dL (8.5-10.1); CREATININE 1.1 mg/dL (0.6-1.3)
[2021-02-06 08:51] LABS: POTASSIUM 2.6 mmol/L (3.5-5.1)
[2021-02-06] MEDS: VANCOMYCIN 0.75 GM in IV D5W 250 ML IV SCH (09:56)
[2021-02-06] MEDS: FLUCONAZOLE IN NS 200 MG in PREMIX 1 EA IV SCH (10:35)
[2021-02-06 10:36] LABS: BAND % (MANUAL) 2 % (0.0-5.0); LYMPHOCYTES % (MANUAL) 16 % (16-48); MONOCYTES % (MANUAL) 11 % (0-11.0); NEUTROPHILS % (MANUAL) 71 (42-76)
--- NOTE | 2021-02-06 12:30 | NUR ---
RN NOTE PATIENT PULLED OUT HER NG TUBE. WAS EXPLAINED THE RATIONALE FOR NG RE INSERTION BUT WAS ADAMANT NOT HAVING ANOTHER ONE PUT IN. NOTIFIED.
[2021-02-06] MEDS: POTASSIUM PHOSPHATE MM 7.5 MMOL in IV NS 0.9% 100 ML IV SCH ×2 (12:59→16:11)
[2021-02-06] MEDS: PANTOPRAZOLE 40 MG VIAL IV SCH (13:20)
[2021-02-06] MEDS: ALBUTEROL FS 2.5 MG/0.5 ML VIAL.NEB NEB SCH ×2 (15:23→23:05)
[2021-02-06] MEDS: FAT EMULSION 20% 500 ML in PREMIX 1 EA IV SCH (17:26)
--- NOTE | 2021-02-06 18:33 | NUR ---
RN CLOSING NOTES PATIENT REMAINS AWAKE ALERT AND ORIENTED. ON 2L NC SATURATING 96% AND NOT IN ANY RESPIRATORY DISTRESS. ST 103 ON BEDSIDE MONITOR. COLOSTOMY EMPTIED 150MLS, ZACARIAS DRAINED 2900MLS. TANVI DRAIN #1 EMPTIED 80MLS, AND 400MLS ON tanvi #2. PICC LINE TYRELL WITH TPN AT 60ML/HR AND LIPIDS AT 20ML/HR. SAFETY CHECKS IN PLACE. WILL ENDORSE TO NIGHT RN FOR CONTINUITY OF CARE.
--- NOTE | 2021-02-06 19:50 | NUR ---
RN NOTE PATIENT AWAKE ALERT AND ORIENTEDX3, ABLE TO MAKE NEEDS KNOWN. ON 2L NC SATURATING 98% AND NO SIGNS OF RESPIRATORY DISTRESS. ST 110 ON BEDSIDE MONITOR. COLOSTOMY NOTED, ZACARIAS DRAINING YELLOW URINE VIA GRAVITY. BENITA DRAIN #1 AND BENITA #2 PATENT AND INTACT. PICC LINE TYRELL WITH TPN AT 60ML/HR AND LIPIDS AT 20ML/HR. BED LOCKED AND IN LOWEST POSITION. CALL LIGHT WITHIN REACH. ALL NEEDS ANTICIPATED.
[2021-02-06] MEDS ORDERED: TPN BAG#5 IV SCH (22:40)
[2021-02-07] VITALS (21 sets, daily range): BP systolic 105–148; BP diastolic 52–74
[2021-02-07] MEDS: MEROPENEM 500 MG in IV NS 0.9% 50 ML IV SCH (04:21)
[2021-02-07] MEDS: BLOOD SUGAR DIAGNOSTIC 1 EACH STRIP IN SCH ×3 (05:16→17:10)
[2021-02-07] MEDS: INSULIN REGULAR, HUMAN 100 UNIT/ML 3 ML VIAL SQ PRN ×2 (05:20→12:35)
[2021-02-07 05:25] LABS: CALCIUM, SERUM 6.8 mg/dL (8.5-10.1); CREATININE 1.3 mg/dL (0.6-1.3); MAGNESIUM 1.7 mg/dL (1.8-2.4); PHOSPHORUS 3.3 mg/dL (2.5-4.9)
[2021-02-07 05:37] LABS: POTASSIUM 2.4 mmol/L (3.5-5.1)
[2021-02-07] MEDS ORDERED: POTASSIUM CHLORIDE 10 MEQ/50 ML PREMIXED IVPB FOR PERIPHERAL LINE IV ONE (06:00)
[2021-02-07] MEDS: POTASSIUM CL. PREMIX PERIPHER. 50 ML IV SCH ×11 (06:24→22:21)
--- NOTE | 2021-02-07 07:26 | NUR ---
RN NOTE PATIENT AWAKE ALERT AND ORIENTEDX3, ABLE TO MAKE NEEDS KNOWN. ON 2L NC SATURATING 98% AND NO SIGNS OF RESPIRATORY DISTRESS. COLOSTOMY OUTPUT 375, ZACARIAS DRAINING YELLOW URINE VIA GRAVITY OUTPUT 1050. BENITA DRAIN #1 OUTPUT 15 AND BENITA #2 OUTPUT 175. PICC LINE TYRELL WITH TPN AT 60ML/HR AND LIPIDS AT 20ML/HR. NOTED WITH K 2.4, NOTIFIED [facility] [place] WITH NEW ORDERS NOTED AND CARRIED OUT. CALL LIGHT WITHIN REACH. ENDORSED TO AM SHIFT.
--- NOTE | 2021-02-07 07:30 | NUR ---
RN RECEIVING NOTES RECEIVED PATIENT AWAKE ALERT AND ORIENTED. ON 2L NC SATURATING 97% AND NOT IN ANY RESPIRATORY DISTRESS. ST 109 ON BEDSIDE MONITOR. COLOSTOMY NOTED. ZACARIAS DRAINING BY GRAVITY. PICC LINE TYRELL WITH TPN AT 60ML/HR, LIPIDS AT 20ML/HR AND KCL AT 50ML/HR. SAFETY CHECKS IN PLACE. WILL CONTINUE TO MONITOR.
[2021-02-07] MEDS: ALBUTEROL FS 2.5 MG/0.5 ML VIAL.NEB NEB SCH ×3 (08:57→23:30)
[2021-02-07] MEDS: Magnesium 1GM/D5W 100ML PREMIX 100 ML IV SCH ×2 (12:18→13:00)
[2021-02-07] MEDS: PANTOPRAZOLE 40 MG VIAL IV SCH (13:51)
[2021-02-07] MEDS: LEVOFLOXACIN 750 MG /D5W 150ML 750 MG in PREMIX 1 EA IV SCH (13:51)
[2021-02-07] MEDS ORDERED: TPN BAG #6 IV SCH (15:00)
[2021-02-07] MEDS: IV NS 0.9% 250 ML IV PRN (16:31)
--- NOTE | 2021-02-07 18:45 | NUR ---
RN NOTE REPORT GIVEN TO CARLOS SCHRADER. PATIENT WAS TRANSFERRED VIA ACLS PROTOCOL AND ARRIVED AT RM 324-1 IN STABLE CONDITION. PATIENT BELONGINGS HANDED OVER.
--- NOTE | 2021-02-07 19:14 | NUR ---
FACILITIES SUPERVISORCLINICAL REHABILITATION COORDINATOR NOTE RECEIVED PATIENT FROM ICU VIA HOSPITAL BED. PATIENT IS A/O X 4 PATIENT IS BREATHING EVENLY AND NONLABORED ON ROOM AIR NO SIGNS OF DISTRESS NOTED. PATIENT DOES NOT COMPLAIN AT THIS TIME. PATIENT HAS PICC LINE RIGHT UPPER ARM TPN ORDERED @ 70ML/HR. PATIENT NOTED WITH ZACARIAS CATHETER AND COLOSTOMY. PATIENT HAS 2 BENITA DRAINS POST SURGERY, INTACT DRAINING WELL. PATIENT WAS PLACED ON TELE MONITOR. SAFETY MEASURES IN PLACE BED LOW LOCKED SIDE RAILS UP CALL LIGHT WITHIN REACH. WILL ENDORSE TO ONCOMING SHIFT.
--- NOTE | 2021-02-07 19:45 | NUR ---
TELERN RECEIVED FULLY AWAKE, WAS JUST TRANSFERRED FROM ICU. FLAT ON BED, NO SOB. PAIN TOLERABLE. COLOSTOMY SCANTY CLEAR LIQUID OUTPUT OF THIS TIME. BENITA X2 EMPTY FOR NOW. WILL MONITOR OUTPUT. PRESENT TPN INFUSING WELL VIA RIGHT UPPER ARM PICC LINE, POTASSIUM REPLACEMENT INFUSING ON THE OTHER PORT. WILL NEED 1 MORE DOSE TONIGHT. ZACARIAS TO GRAVITY, KEPT NPO TILL FURTHER ORDERS. REMAINS ALERT/ORIENTED X4. NO SOB. KEPT COMFORTABLE. ALL NEEDS ATTENDED.PLAN OF CARE AND MEDICATION REGIMEN DISCUSSED WITH PATIENT, APPEARS TO UNDERSTAND. CALL LIGHT WITHIN REACH. ST ON THE MONITOR. CONTINUED MONITORING.
--- NOTE | 2021-02-07 22:00 | NUR ---
TELERN REPOSITIONED PER PATIENTS COMFORT. REFUSED TO TURN FROM SIDE TO SIDE, REQUESTED ONLY PILLOWS ON BOTH SIDES. ENCOURAGED TO INCREASE ACTIVITY PER PER ORDERS, ENCOURAGED DEEP BREATHING AND COUGHING EXERCISES AND TO USE INCENTIVE SPIROMETRY. LISTENS FOR AWHILE. NEEDED TO BE REMINDED.
[2021-02-07] MEDS: METRONIDAZOLE 500MG/ NS 100ML 500 MG in PREMIX 1 EA IV SCH (22:23)
[2021-02-08] VITALS: BP 116/66
--- NOTE | 2021-02-08 01:33 | NUR ---
TELERN BS WAS 110 NO COVERAGE. TPN ON SAME RATE.
[2021-02-08 04:00] VITALS: BP 125/71
[2021-02-08] MEDS: METRONIDAZOLE 500MG/ NS 100ML 500 MG in PREMIX 1 EA IV SCH ×3 (05:00→21:28)
[2021-02-08] MEDS ORDERED: TPN BAG #7 IV SCH (05:17)
[2021-02-08] MEDS: MORPHINE SULFATE INJ 2 MG/ML DISP.SYRIN IV PRN ×2 (05:24→08:38)
--- NOTE | 2021-02-08 05:25 | NUR ---
TELERN DENIES PAIN STATED HAS PAIN ONLY WHEN MOVING. OFFERED PAIN MED, APPEARS TO BE IN PAIN AGREED TO HAVE MORPHINE. REMINDED NEED TO INCREASE ACTIVITY AND DO DEEP BREATHING AND COUGHING , AFRAID TO COUGH. INCENTIVE SPIROMETRY AT BEDSIDE ENCOURAGED TO USE WHILE AWAKE. BS 105. TPN CONTINUED VIA PICC LINE. CONTINUED MONITORING.
[2021-02-08] MEDS: BLOOD SUGAR DIAGNOSTIC 1 EACH STRIP IN SCH ×4 (06:29→17:26)
--- NOTE | 2021-02-08 07:26 | NUR ---
RN NOTES SEEN IN BED RESTING, AWAKE AND VERBALLY RESPONSIVE. A/O X4, ABLE TO MAKE NEEDS KNOWN. BREATHING EVEN AND UNLABORED, TOLERATING ROOM AIR. COMPLAINT OF ABDOMINAL PAIN BUT ABLE TO TOLERATE AT THIS TIME; OFFERED PAIN MEDICATION AND PATIENT STATED SHE CAN TAKE IT LATER BEFORE PHYSICAL THERAPY. SAFETY MEASURES IN PLACE. WILL CONTINUE TO MONITOR.
[2021-02-08] MEDS: ALBUTEROL FS 2.5 MG/0.5 ML VIAL.NEB NEB SCH ×3 (07:32→23:53)
[2021-02-08 07:33] LABS: CALCIUM, SERUM 7.2 mg/dL (8.5-10.1); CREATININE 1.1 mg/dL (0.6-1.3); MAGNESIUM 1.9 mg/dL (1.8-2.4); PHOSPHORUS 2.8 mg/dL (2.5-4.9); POTASSIUM 3.1 mmol/L (3.5-5.1)
[2021-02-08 08:00] VITALS: BP 118/64
--- NOTE | 2021-02-08 09:26 | NUR ---
RN NOTES PATIENT SEEN BY PHYSICAL THERAPIST TODAY AT BEDSIDE.
[2021-02-08 10:20] LABS: BASOPHILS % (AUTO) 0.7 % (0.0-2.0); EOSINOPHILS % (AUTO) 2.1 % (0.0-6.0); LYMPHOCYTES # (AUTO) 0.6 K/uL (0.8-4.8); LYMPHOCYTES % (AUTO) 9.4 % (20.0-44.0); MEAN CORPUSCULAR HGB CONC 34 g/dl (31.0-36.0); MEAN CORPUSCULAR VOLUME 91 fL (82-100); MONOCYTES # (AUTO) 0.4 K/uL (0.1-1.30); NEUTROPHILS # (AUTO) 5.6 K/uL (1.8-8.9); NEUTROPHILS % (AUTO) 81.8 % (43.0-81.0); PLATELET COUNT (AUTO) 243 K/uL (150-450); RED BLOOD CELL COUNT(AUTO) 2.22 MIL/uL (4.0-5.2); WHITE BLOOD COUNT (AUTO) 6.8 K/uL (4.3-11.0)
--- NOTE | 2021-02-08 10:26 | NUR ---
RN NOTES SPOKE W/ MEI RAMIREZ NP, AND INFORMED ABOUT ADVANCING PATIENT'S DIET; PATIENT HAS NO COMPLAINT OF NAUSEA/VOMITING AND IS EAGER TO ADVANCE DIET TOLERATED. PER MEI, OK TO ADVANCE DIET AND START W/ CLEAR LIQUID AT THIS TIME. WILL CONTINUE TO MONITOR.
[2021-02-08] MEDS: POTASSIUM CL. PREMIX PERIPHER. 50 ML IV SCH ×5 (10:37→22:31)
[2021-02-08 11:09] LABS: HEMATOCRIT 20 % (33-45); HEMOGLOBIN 6.9 g/dL (11.5-14.8)
[2021-02-08] MEDS: INSULIN REGULAR, HUMAN 100 UNIT/ML 3 ML VIAL SQ PRN ×2 (11:23→17:26)
[2021-02-08 11:40] LABS: LYMPHOCYTES % (MANUAL) 6 % (16-48); MONOCYTES % (MANUAL) 7 % (0-11.0); NEUTROPHILS % (MANUAL) 87 (42-76)
[2021-02-08 12:00] VITALS: BP 124/74
--- NOTE | 2021-02-08 12:12 | NUR ---
RN NOTES RECEIVED CALL FROM DR. DOROTHY SHARPE; PER MD, HE SPOKE W/ DR. CRUMP AND MADE AWARE OF STARTING PATIENT ON CLEAR LIQUID DIET. IF PATIENT TOLERATES CLEAR LIQUID DIET, MAY D/C TPN TOMORROW. DR. DE LA CRUZ MADE AWARE WELL OF PATIENT'S CRITICAL HGB/HCT RESULT; PER DR. DE LA CRUZ, WAIT UNTIL TOMORROW AND RE-CHECK.
--- NOTE | 2021-02-08 14:00 | NUR ---
RN NOTES PATIENT GIVEN WATER AT THIS TIME, ABLE TO SWALLOW AND RETAIN FLUID. NO COMPLAINT OF NAUSEA/VOMITING NOR ABDOMINAL PAIN. PROVIDED W/ TOOTHBRUSH AND ORAL CLEANING SUPPLIES AT BEDSIDE TABLE. WILL CONTINUE TO MONITOR.
[2021-02-08] MEDS: LEVOFLOXACIN 750 MG /D5W 150ML 750 MG in PREMIX 1 EA IV SCH (14:08)
[2021-02-08] MEDS: PANTOPRAZOLE 40 MG VIAL IV SCH (14:08)
[2021-02-08] MEDS ORDERED: Sodium Phosphate 15 MMOL in IV NS 0.9% 245 ML IV SCH (15:00)
[2021-02-08 16:45] VITALS: BP 112/62
[2021-02-08] MEDS: FAT EMULSION 20% 500 ML in PREMIX 1 EA IV SCH (17:19)
--- NOTE | 2021-02-08 19:09 | NUR ---
RN NOTES PATIENT CONTINUES TO BE ON TPN; MAY D/C TOMORROW IF ABLE TO TOLERATE CLEAR LIQUID DIET, ADVANCE TOLERATED. SEEN IN BED RESTING, VERBALLY RESPONSIVE AND ABLE TO MAKE NEEDS KNOWN. PICC INTACT AND PATENT; F/C INTACT AND DRAINING YELLOW-COLORED URINE. CURRENTLY TOLERATING CLEAR LIQUIDS AT THIS TIME. SAFETY MEASURES MAINTAINED. WILL ENDORSE TO NAVIGATING OFFICER RN FOR DANIAL.
--- NOTE | 2021-02-08 19:20 | NUR ---
OPENING RN NOTE BEDSIDE REPORT RECIEVED FROM AYLEEN GONZALEZ. PATIENT ON TPN TOLERATING CLEAR LIQUID DIET. PER REPORT PLAN IS TO EVALUATE FURTHER NEED FOR TPN TOMORROW IF SHE CONTINUES TO TOLERATE DIET. PT IN BED RESTING, VERBALLY RESPONSIVE AND ABLE TO MAKE NEEDS KNOWN. PICC INTACT AND PATENT; F/C INTACT AND DRAINING YELLOW-COLORED URINE. SAFETY MEASURES IN PLACE BED DOWN LOCKED CALL LIGHT IN REACH SRX2 VERBALIZED UNDERSTANDING TO CALL FOR ASSISTANCE IF NEEDED. WILL CONT TO MONITOR.
[2021-02-08] MEDS ORDERED: TPN BAG #8 IV SCH (19:35)
[2021-02-08 20:00] VITALS: BP 92/50
--- NOTE | 2021-02-08 20:03 | NUR ---
NEW TPN BAG BEING DELIVERED SOON SPOKE WITH PHARMACIST AND CONFIRMED THAT ADDITIONAL ORDER OF 30 MEQ KCL ARE TO BE GIVEN TONIGHT. K WAS 3.1 THIS AM AND 30 MEQ IVPB GIVEN EARLIER TODAY.
[2021-02-09] VITALS: BP_SYST 125; BP_SYST 129; BP_DIAS 64; BP_DIAS 76
[2021-02-09] MEDS: BLOOD SUGAR DIAGNOSTIC 1 EACH STRIP IN SCH ×4 (00:26→16:48)
[2021-02-09] MEDS: POTASSIUM CL. PREMIX PERIPHER. 50 ML IV SCH ×7 (00:26→20:19)
[2021-02-09 04:00] VITALS: BP 124/60
[2021-02-09] MEDS: METRONIDAZOLE 500MG/ NS 100ML 500 MG in PREMIX 1 EA IV SCH ×3 (04:33→21:46)
[2021-02-09 06:37] LABS: BASOPHILS % (AUTO) 0.4 % (0.0-2.0); EOSINOPHILS % (AUTO) 1.7 % (0.0-6.0); LYMPHOCYTES # (AUTO) 0.6 K/uL (0.8-4.8); MEAN CORPUSCULAR HGB CONC 35 g/dl (31.0-36.0); MEAN CORPUSCULAR VOLUME 90 fL (82-100); MONOCYTES # (AUTO) 0.4 K/uL (0.1-1.30); MONOCYTES % (AUTO) 4.1 % (2.0-12.0); NEUTROPHILS # (AUTO) 9.5 K/uL (1.8-8.9); NEUTROPHILS % (AUTO) 87.8 % (43.0-81.0); PLATELET COUNT (AUTO) 360 K/uL (150-450); RED BLOOD CELL COUNT(AUTO) 2.23 MIL/uL (4.0-5.2); WHITE BLOOD COUNT (AUTO) 10.8 K/uL (4.3-11.0)
[2021-02-09] MEDS: INSULIN REGULAR, HUMAN 100 UNIT/ML 3 ML VIAL SQ PRN (06:40)
[2021-02-09 06:42] LABS: BILIRUBIN,TOTAL 0.3 mg/dL (0.2-1.0); CREATININE 1.2 mg/dL (0.6-1.3); MAGNESIUM 1.5 mg/dL (1.8-2.4); PHOSPHORUS 3.4 mg/dL (2.5-4.9); POTASSIUM 2.9 mmol/L (3.5-5.1); TOTAL PROTEIN, SERUM 4.6 g/dL (6.4-8.2)
[2021-02-09 06:44] LABS: HEMATOCRIT 20 % (33-45)
[2021-02-09 06:55] LABS: ALBUMIN 0.9 g/dL (3.4-5.0)
[2021-02-09] MEDS: ALBUTEROL FS 2.5 MG/0.5 ML VIAL.NEB NEB SCH ×3 (07:43→23:30)
[2021-02-09] MEDS: IPRATROPIUM NEB FS 0.5 MG/2.5 ML AMPUL.NEB NEB PRN ×2 (07:43→15:43)
[2021-02-09 08:00] VITALS: BP 124/69
[2021-02-09] MEDS: Magnesium 1GM/D5W 100ML PREMIX 100 ML IV SCH ×2 (09:11→10:32)
[2021-02-09] MEDS ORDERED: TPN BAG #9 IV SCH (09:53)
[2021-02-09] MEDS ORDERED: CEFEPIME 1 GM in IV D5W 50 ML IV SCH (10:30)
[2021-02-09 11:20] LABS: BAND % (MANUAL) 1 % (0.0-5.0); LYMPHOCYTES % (MANUAL) 7 % (16-48); METAMYELOCYTES % 1 % (0-0); MONOCYTES % (MANUAL) 7 % (0-11.0); NEUTROPHILS % (MANUAL) 84 (42-76)
[2021-02-09] MEDS: CEFEPIME 2 GM in IV D5W 100 ML IV SCH ×2 (12:05→23:23)
[2021-02-09] MEDS: PANTOPRAZOLE 40 MG VIAL IV SCH (12:54)
--- NOTE | 2021-02-09 15:16 | NUR ---
MULTIPLE REPLACEMENTS OF POTASSIUM AND MG. FOR LOW BLOOD LEVELS.
[2021-02-09 16:00] VITALS: BP 119/70
--- NOTE | 2021-02-09 18:00 | NUR ---
DENIES PAIN,COOPERATIVE,MED COMPLIANT.
--- NOTE | 2021-02-09 19:36 | NUR ---
DIRECTOR STRATEGY NOTES RECEIVED PATIENT ON TPN TOLERATING WELL PT ALSO ON CLEAR LIQUID DIET. PT IN BED RESTING, VERBALLY RESPONSIVE AND ABLE TO MAKE NEEDS KNOWN. A/O X4 PICC INTACT AND PATENT; F/C INTACT AND DRAINING YELLOW-COLORED URINE. SAFETY MEASURES IN PLACE BED LOCKED IN POSITION CALL LIGHT WITHIN REACH. WILL CONTINUE TO MONITOR.
[2021-02-09 20:00] VITALS: BP 125/68
[2021-02-09] MEDS: MORPHINE SULFATE INJ 2 MG/ML DISP.SYRIN IV PRN (22:34)
[2021-02-10] VITALS: BP 125/76
[2021-02-10] MEDS ORDERED: TPN BAG #10 IV SCH (00:10)
[2021-02-10] MEDS: BLOOD SUGAR DIAGNOSTIC 1 EACH STRIP IN SCH ×4 (00:22→18:04)
[2021-02-10 04:00] VITALS: BP 139/75
[2021-02-10] MEDS: METRONIDAZOLE 500MG/ NS 100ML 500 MG in PREMIX 1 EA IV SCH ×3 (04:49→20:44)
[2021-02-10 06:33] LABS: BASOPHILS # (AUTO) 0.1 K/uL (0.0-0.2); BASOPHILS % (AUTO) 0.4 % (0.0-2.0); EOSINOPHILS % (AUTO) 1.1 % (0.0-6.0); LYMPHOCYTES # (AUTO) 0.7 K/uL (0.8-4.8); LYMPHOCYTES % (AUTO) 4.5 % (20.0-44.0); MEAN CORPUSCULAR HGB CONC 34 g/dl (31.0-36.0); MEAN CORPUSCULAR VOLUME 90 fL (82-100); MONOCYTES # (AUTO) 0.5 K/uL (0.1-1.30); MONOCYTES % (AUTO) 3.3 % (2.0-12.0); NEUTROPHILS # (AUTO) 14.3 K/uL (1.8-8.9); NEUTROPHILS % (AUTO) 90.7 % (43.0-81.0); PLATELET COUNT (AUTO) 456 K/uL (150-450); RED BLOOD CELL COUNT(AUTO) 2.19 MIL/uL (4.0-5.2); WHITE BLOOD COUNT (AUTO) 15.7 K/uL (4.3-11.0)
--- NOTE | 2021-02-10 06:40 | NUR ---
LAB NURSE NOTES PATIENT ON TPN TOLERATING WELL PT ALSO ON CLEAR LIQUID DIET. PT IN BED RESTING, VERBALLY RESPONSIVE AND ABLE TO MAKE NEEDS KNOWN. A/O X4 PICC LINE INTACT AND PATENT; F/C INTACT AND DRAINING YELLOW-COLORED URINE. PT HAS TWO RIGHT SIDE OF THE ABDOMEN TOTAL OUTPUT 110 ML . PT HAS A COLOSTOMY BAG INTACT AND SITE CLEAN.SAFETY MEASURES IN PLACE BED LOCKED IN POSITION CALL LIGHT WITHIN REACH. WILL ENDORSE CARE TO DAY SHIFT NURSE.
[2021-02-10 06:50] LABS: BILIRUBIN,TOTAL 0.4 mg/dL (0.2-1.0); CREATININE 1.3 mg/dL (0.6-1.3); HEMATOCRIT 20 % (33-45); MAGNESIUM 1.8 mg/dL (1.8-2.4); PHOSPHORUS 2.8 mg/dL (2.5-4.9); POTASSIUM 3.1 mmol/L (3.5-5.1)
[2021-02-10 06:52] LABS: ALBUMIN 0.9 g/dL (3.4-5.0)
[2021-02-10 06:54] LABS: HEMOGLOBIN 6.8 g/dL (11.5-14.8)
--- NOTE | 2021-02-10 06:58 | NUR ---
FINISHER DENTURE NOTES RECEIVED CRITICAL LAB RESULT HGB 6.8 INFORMED SUPERVISOR CARTON AND CAN SUPPLY MD AWAITING RESPONSE. WILL ENDORSE TO DAY SHIFT NURSE.
[2021-02-10] MEDS: IPRATROPIUM NEB FS 0.5 MG/2.5 ML AMPUL.NEB NEB PRN ×2 (07:45→15:09)
[2021-02-10] MEDS: ALBUTEROL FS 2.5 MG/0.5 ML VIAL.NEB NEB SCH ×3 (07:45→23:30)
[2021-02-10 08:00] VITALS: BP 130/80
[2021-02-10 09:09] LABS: BAND % (MANUAL) 4 % (0.0-5.0); EOSINOPHILS % (MANUAL) 1 % (0-4); LYMPHOCYTES % (MANUAL) 5 % (16-48); MONOCYTES % (MANUAL) 3 % (0-11.0); MYELOCYTES % 2 % (0-0); NEUTROPHILS % (MANUAL) 85 (42-76)
[2021-02-10] MEDS: POTASSIUM CL. PREMIX PERIPHER. 50 ML IV SCH ×4 (10:01→14:58)
[2021-02-10] MEDS: MORPHINE SULFATE INJ 2 MG/ML DISP.SYRIN IV PRN (11:03)
[2021-02-10] MEDS: CEFEPIME 2 GM in IV D5W 100 ML IV SCH ×2 (11:17→23:10)
[2021-02-10 12:00] VITALS: BP 136/80
[2021-02-10] MEDS: IV NS 0.9% 250 ML IV PRN (12:06)
[2021-02-10] MEDS: PANTOPRAZOLE 40 MG VIAL IV SCH (14:58)
[2021-02-10 16:00] VITALS: BP 122/63
--- NOTE | 2021-02-10 18:00 | NUR ---
med. x1 for abd. pain.tpn tapered then discontinued.
--- NOTE | 2021-02-10 20:03 | NUR ---
KOTA/TELE/RN RECEIVED PATIENT LYING IN BED AWAKE, ALERT, ORIENTED, COMFORTABLE, NO C/O PAIN, NO DISTRESS NOTED, CALL LIGHT IN REACH, FALL PRECAUTIONS PER PROTOCOL, WILL MONITOR.
[2021-02-10 20:53] VITALS: BP 115/61
[2021-02-11] VITALS (13 sets, daily range): BP systolic 108–126; BP diastolic 57–69
[2021-02-11] MEDS: BLOOD SUGAR DIAGNOSTIC 1 EACH STRIP IN SCH ×4 (00:29→18:37)
[2021-02-11] MEDS: METRONIDAZOLE 500MG/ NS 100ML 500 MG in PREMIX 1 EA IV SCH ×3 (05:04→20:29)
[2021-02-11 05:45] LABS: BASOPHILS # (AUTO) 0.1 K/uL (0.0-0.2); BASOPHILS % (AUTO) 0.5 % (0.0-2.0); EOSINOPHILS % (AUTO) 1.3 % (0.0-6.0); LYMPHOCYTES # (AUTO) 0.8 K/uL (0.8-4.8); LYMPHOCYTES % (AUTO) 5.8 % (20.0-44.0); MEAN CORPUSCULAR HGB CONC 34 g/dl (31.0-36.0); MEAN CORPUSCULAR VOLUME 90 fL (82-100); MONOCYTES # (AUTO) 0.6 K/uL (0.1-1.30); MONOCYTES % (AUTO) 4.5 % (2.0-12.0); NEUTROPHILS # (AUTO) 12.1 K/uL (1.8-8.9); NEUTROPHILS % (AUTO) 87.9 % (43.0-81.0); PLATELET COUNT (AUTO) 516 K/uL (150-450); RED BLOOD CELL COUNT(AUTO) 2.11 MIL/uL (4.0-5.2); WHITE BLOOD COUNT (AUTO) 13.7 K/uL (4.3-11.0)
[2021-02-11 05:58] LABS: BILIRUBIN,TOTAL 0.4 mg/dL (0.2-1.0); CALCIUM, SERUM 7.6 mg/dL (8.5-10.1); CREATININE 1.4 mg/dL (0.6-1.3); MAGNESIUM 1.8 mg/dL (1.8-2.4); PHOSPHORUS 3.8 mg/dL (2.5-4.9); POTASSIUM 3.3 mmol/L (3.5-5.1); TOTAL PROTEIN, SERUM 5.3 g/dL (6.4-8.2)
--- NOTE | 2021-02-11 06:34 | NUR ---
MS/TELE/RN PATIENT IS AWAKE, ALERT, COMFORTABLE, NO C/O PAIN, NO DISTRESS NOTED, CALL LIGHT IN REACH, ALL NEEDS ATTENDED AT THIS TIME, WILL CONTINUE TO MONITOR.
[2021-02-11 06:37] LABS: HEMOGLOBIN 6.5 g/dL (11.5-14.8)
[2021-02-11 06:38] LABS: HEMATOCRIT 19 % (33-45)
--- NOTE | 2021-02-11 06:53 | NUR ---
MS/TELE/RN H&H 6.12/29, BRIAN AHSLEY NP, NOTIFIED, RECEIVED ORDER OF 1 UNIT PRBC. WILL ENDORSE TO NEXT RN.
--- NOTE | 2021-02-11 07:20 | NUR ---
HEALTH TYPE TECHNICIAN OPENING NOTE PATIENT ALERT AND ORIENTED X4. WITH EVEN AND UNLABORED BREATHING ON ROOM AIR WITH NO SIGNS OF DISTRESS. WITH PICC LINE ON RIGHT AC, INTACT AND PATENT. WITH F/C TO URINE BAG, INTACT AND DRAINING YELLOW-COLORED URINE. WITH COLOSTOMY BAG ON LEFT ABDOMINAL AREA, WITH BAG INTACT, NO LEAKAGE. WITH 2 BENITA DRAINS ON THE RIGHT ABDOMEN, MAINTAINED ON NEGATIVE PRESSURE. SAFETY MEASURES IN PLACE BED DOWN LOCKED CALL LIGHT IN REACH. ABLE TO MAKE NEEDS KNOWN. WILL CONT TO MONITOR.
[2021-02-11] MEDS: ALBUTEROL FS 2.5 MG/0.5 ML VIAL.NEB NEB SCH ×3 (07:35→23:30)
[2021-02-11 09:27] LABS: EOSINOPHILS % (MANUAL) 1 % (0-4); LYMPHOCYTES % (MANUAL) 3 % (16-48); METAMYELOCYTES % 2 % (0-0); MONOCYTES % (MANUAL) 4 % (0-11.0); MYELOCYTES % 2 % (0-0); NEUTROPHILS % (MANUAL) 88 (42-76)
--- NOTE | 2021-02-11 09:45 | NUR ---
FLOW NURSE NOTE PATIENT WITH ORDER FOR BLOOD TRANSFUSION. PATIENT AWARE AND VERBALIZED UNDERSTANDING AND APPRECIATION. PATIENT VS ARE WNL. NO COMPLAIN OF PAIN. AWAITING AVAILABILITY OF BLOOD. WILL CONTINUE TO MONITOR PATIENT.
[2021-02-11] MEDS ORDERED: POTASSIUM CHLORIDE 20 MEQ POWDER PACKET PO SCH ×2 (10:30→12:30)
[2021-02-11] MEDS: CEFEPIME 2 GM in IV D5W 100 ML IV SCH ×2 (13:46→22:11)
--- NOTE | 2021-02-11 14:00 | NUR ---
RUBBER TIRE AND TUBES SUPERVISOR NOTE PATIENT ABLE TO TOLERATE BLOOD TRANSFUSION WITH NO ADVERSE REACTION NOTED. VS ARE WNL AND DOCUMENTED ACCORDINGLY. COMFORT MEASURES PROVIDED. WILL CONTINUE TO MONITOR PATIENT.
[2021-02-11] MEDS: PANTOPRAZOLE 40 MG VIAL IV SCH (14:20)
[2021-02-11] MEDS ORDERED: DIATR MEGLU/DIATRIZOATE SODIUM 30 ML BOTTLE (GASTROGRAPHIN) ONE (16:09)
[2021-02-11] MEDS: ENSURE CLEAR 237 ML LIQUID (MIX BERRY) PO SCH (17:00)
[2021-02-11] MEDS ORDERED: IOHEXOL-300 100 ML VIAL IV ONE (18:08)
--- NOTE | 2021-02-11 18:30 | NUR ---
BRAILLE TEACHER NOTE CT SCAN OF CHEST PELVIS AND ABDOMEN WITH CONTRAST DONE ORDERED. PROCEDURE TOLERATED WELL.
--- NOTE | 2021-02-11 18:55 | NUR ---
PIPE FITTER GAS PIPE CLOSING NOTE PATIENT ALERT AND ORIENTED X4. WITH EVEN AND UNLABORED BREATHING ON ROOM AIR WITH NO SIGNS OF DISTRESS. WITH PICC LINE ON RIGHT AC, INTACT AND PATENT. WITH F/C TO URINE BAG, INTACT AND DRAINING YELLOW-COLORED URINE. WITH COLOSTOMY BAG ON LEFT ABDOMINAL AREA, WITH BAG INTACT, NO LEAKAGE. WITH 2 BENITA DRAINS ON THE RIGHT ABDOMEN, MAINTAINED ON NEGATIVE PRESSURE. SAFETY MEASURES IN PLACE BED DOWN LOCKED CALL LIGHT IN REACH. ABLE TO MAKE NEEDS KNOWN. WILL ENDORSE TO NEXT SHIFT FOR CONTINUITY OF CARE.
--- NOTE | 2021-02-11 19:35 | NUR ---
TELE/RN OPENING NOTE RECEIVED PATIENT RESTING IN BED. AWAKE, ALERT AND ORIENTED X 4. ABLE TO MAKE NEEDS KNOWN. CONTINUES ON ROOM AIR WITH NO S/SX OF RESPIRATORY DISTRESS NOTED. IV ACCESS TO RIGHT UPPER ARM PICC LINE INTACT, PATENT AND SALINE LOCKED. ZACARIAS CATHETER DRAINING TO GRAVITY. BENITA DRAINS X 2 INTACT AND PATENT. COLOSTOMY INTACT AND PATENT WITH MINIMAL AMOUNT OF STOOL NOTED. CONTINUES ON CLEAR LIQUID DIET WITH NO C/O NAUSEA OR VOMITING. CALL LIGHT WITHIN REACH. ASPIRATION, FALL AND SAFETY PRECAUTIONS MAINTAINED. WILL CONTINUE TO MONITOR. Addendum: 02/11/21 at 2013 by MISBAH MEDINA RN TELE MONITOR READING ST HR 123
[2021-02-12] VITALS: BP 120/70
[2021-02-12] MEDS: BLOOD SUGAR DIAGNOSTIC 1 EACH STRIP IN SCH ×4 (00:11→17:59)
[2021-02-12 04:00] VITALS: BP 126/69
[2021-02-12] MEDS: METRONIDAZOLE 500MG/ NS 100ML 500 MG in PREMIX 1 EA IV SCH ×3 (04:55→21:08)
--- NOTE | 2021-02-12 06:45 | NUR ---
TELE/RN CLOSING NOTE PATIENT CURRENTLY RESTING IN BED. AWAKE, ALERT AND ORIENTED X 4. ABLE TO MAKE NEEDS KNOWN. CONTINUES ON ROOM AIR WITH NO S/SX OF RESPIRATORY DISTRESS NOTED. IV ACCESS TO RIGHT UPPER ARM PICC LINE INTACT, PATENT AND SALINE LOCKED. ZACARIAS CATHETER DRAINING CLEAR YELLOW URINE TO GRAVITY. OUTPUT IS 2,200 THIS SHIFT. BENITA DRAINS X 2 INTACT AND PATENT WITH TOTAL DRAINAGE OF 30CC. COLOSTOMY INTACT AND PATENT - EMPTIED 50ML OF BROWN, LIQUID STOOL. CONTINUES ON CLEAR LIQUID DIET WITH NO C/O NAUSEA OR VOMITING. CALL LIGHT WITHIN REACH. ASPIRATION, FALL AND SAFETY PRECAUTIONS MAINTAINED. WILL ENDORSE PLAN OF CARE TO ONCOMING SHIFT.
[2021-02-12 06:58] LABS: BASOPHILS # (AUTO) 0.1 K/uL (0.0-0.2); BASOPHILS % (AUTO) 0.7 % (0.0-2.0); EOSINOPHILS % (AUTO) 1.5 % (0.0-6.0); HEMATOCRIT 23 % (33-45); HEMOGLOBIN 7.9 g/dL (11.5-14.8); LYMPHOCYTES # (AUTO) 0.7 K/uL (0.8-4.8); LYMPHOCYTES % (AUTO) 4.4 % (20.0-44.0); MEAN CORPUSCULAR HGB CONC 35 g/dl (31.0-36.0); MEAN CORPUSCULAR VOLUME 91 fL (82-100); MONOCYTES # (AUTO) 1.1 K/uL (0.1-1.30); MONOCYTES % (AUTO) 7.3 % (2.0-12.0); NEUTROPHILS # (AUTO) 12.9 K/uL (1.8-8.9); NEUTROPHILS % (AUTO) 86.1 % (43.0-81.0); PLATELET COUNT (AUTO) 569 K/uL (150-450); RED BLOOD CELL COUNT(AUTO) 2.53 MIL/uL (4.0-5.2)
[2021-02-12 07:15] LABS: BILIRUBIN,TOTAL 0.3 mg/dL (0.2-1.0); CALCIUM, SERUM 7.5 mg/dL (8.5-10.1); CREATININE 1.2 mg/dL (0.6-1.3); MAGNESIUM 1.6 mg/dL (1.8-2.4); PHOSPHORUS 3.9 mg/dL (2.5-4.9); TOTAL PROTEIN, SERUM 5.2 g/dL (6.4-8.2)
--- NOTE | 2021-02-12 07:15 | NUR ---
AGRICULTURAL EXTENSION OFFICER OPENING NOTE PATIENT ALERT AND ORIENTED X4. WITH EVEN AND UNLABORED BREATHING ON ROOM AIR WITH NO SIGNS OF DISTRESS. WITH PICC LINE ON RIGHT AC, INTACT AND PATENT. WITH F/C TO URINE BAG, INTACT AND DRAINING YELLOW-COLORED URINE. WITH COLOSTOMY BAG ON LEFT ABDOMINAL AREA, WITH BAG INTACT, NO LEAKAGE. WITH 2 BENITA DRAINS ON THE RIGHT ABDOMEN, MAINTAINED ON NEGATIVE PRESSURE. SAFETY MEASURES IN PLACE BED DOWN LOCKED CALL LIGHT IN REACH. ABLE TO MAKE NEEDS KNOWN. WILL CONTINUE TO MONITOR PATIENT.
[2021-02-12 07:30] LABS: POTASSIUM 2.7 mmol/L (3.5-5.1)
[2021-02-12] MEDS: ALBUTEROL FS 2.5 MG/0.5 ML VIAL.NEB NEB SCH ×3 (07:35→23:30)
--- NOTE | 2021-02-12 07:55 | NUR ---
STAMPS OR COINS SALESPERSON NOTE RECEIVED A CALL FROM JOSE RAUL OF LABORATORY REGARDING CRITICAL RESULT OF POTASSIUM OF 2.7 AROUND 0730H. PATIENT DOES NOT SHOW ANY SIGNS AND SYMPTOMS OF HYPOKALEMIA. DR. NOVAK NOTIFIED WITH NO NEW ORDER AT THIS TIME. MD WILL INPUT ORDERS. WILL CONTINUE TO MONITOR PATIENT.
[2021-02-12 08:00] VITALS: BP 122/67
[2021-02-12] MEDS: PANTOPRAZOLE 40 MG TABLET.DR PO SCH (08:17)
[2021-02-12] MEDS: Magnesium 1GM/D5W 100ML PREMIX 100 ML IV SCH ×2 (08:36→09:37)
[2021-02-12] MEDS: POTASSIUM CL. PREMIX PERIPHER. 50 ML IV SCH ×8 (08:36→15:52)
[2021-02-12] MEDS: ENSURE CLEAR 237 ML LIQUID (MIX BERRY) PO SCH ×3 (09:03→16:52)
[2021-02-12] MEDS: CEFEPIME 2 GM in IV D5W 100 ML IV SCH ×2 (11:25→23:22)
[2021-02-12 16:00] VITALS: BP 109/65
--- NOTE | 2021-02-12 19:05 | NUR ---
PURCHASING BUYER CLOSING NOTE PATIENT ALERT AND ORIENTED X 4. WITH EVEN AND UNLABORED BREATHING ON ROOM AIR WITH NO SIGNS OF DISTRESS. WITH PICC LINE ON RIGHT AC, INTACT AND PATENT. WITH F/C TO URINE BAG, INTACT AND DRAINING YELLOW-COLORED URINE. WITH COLOSTOMY BAG ON LEFT ABDOMINAL AREA, WITH BAG INTACT, NO LEAKAGE. WITH 2 BENITA DRAINS ON THE RIGHT ABDOMEN, MAINTAINED ON NEGATIVE PRESSURE. SAFETY MEASURES IN PLACE BED DOWN LOCKED CALL LIGHT IN REACH. ABLE TO MAKE NEEDS KNOWN. WILL ENDORSE TO NEXT SHIFT FOR CONTINUITY OF CARE.
--- NOTE | 2021-02-12 19:22 | NUR ---
SENIOR PRODUCER: CONTINUITY OF CARE Patient in bed, awake. Sinus Tach HR 107 in the Tele monitor. Lower abdomen incision with wet surgical gauze, some leaking noted within wet gauze. BENITA intact with minimal output. Colostomy intact. Patient denies pain, tolerating room air. Gatica cath to gravity drainage. TYRELL PICC line. Fall precaution maintained.
[2021-02-12 19:57] VITALS: BP 106/61
[2021-02-12 20:00] VITALS: BP 106/61
[2021-02-13] VITALS: BP 117/70
[2021-02-13] MEDS: BLOOD SUGAR DIAGNOSTIC 1 EACH STRIP IN SCH ×5 (00:28→23:41)
[2021-02-13] MEDS: INSULIN REGULAR, HUMAN 100 UNIT/ML 3 ML VIAL SQ PRN ×2 (00:29→05:39)
--- NOTE | 2021-02-13 00:29 | NUR ---
FINANCIAL SERVICE PROFESSIONAL: ACCU CHECK FSBG 105mg/dl Held insulin per level ordered.
[2021-02-13 04:00] VITALS: BP 131/72
[2021-02-13] MEDS: METRONIDAZOLE 500MG/ NS 100ML 500 MG in PREMIX 1 EA IV SCH ×3 (04:54→20:15)
--- NOTE | 2021-02-13 05:39 | NUR ---
SENIOR FIRMWARE ENGINEER: ACCU CHECK FSBG 110mg/dl Held insulin per level ordered.
[2021-02-13 06:40] LABS: BASOPHILS # (AUTO) 0.2 K/uL (0.0-0.2); EOSINOPHILS % (AUTO) 1.7 % (0.0-6.0); HEMATOCRIT 24 % (33-45); HEMOGLOBIN 7.9 g/dL (11.5-14.8); LYMPHOCYTES # (AUTO) 0.8 K/uL (0.8-4.8); LYMPHOCYTES % (AUTO) 4.9 % (20.0-44.0); MEAN CORPUSCULAR HGB CONC 34 g/dl (31.0-36.0); MEAN CORPUSCULAR VOLUME 93 fL (82-100); MONOCYTES # (AUTO) 1.1 K/uL (0.1-1.30); MONOCYTES % (AUTO) 6.6 % (2.0-12.0); NEUTROPHILS % (AUTO) 85.8 % (43.0-81.0); PLATELET COUNT (AUTO) 589 K/uL (150-450); RED BLOOD CELL COUNT(AUTO) 2.54 MIL/uL (4.0-5.2); WHITE BLOOD COUNT (AUTO) 16.3 K/uL (4.3-11.0)
--- NOTE | 2021-02-13 06:40 | NUR ---
SERVER MANAGER: END OF SHIFT REPORT Patient is A/O x3. Sinus rhythm, Sinus Tach HR 99 in the Tele monitor. TYRELL PICC line intact, on IV Flagyl/Maxipime. Afebrile. Abdomen lap site, BENITA x2 to bulb suction. BENITA #1 zero output/ BENITA#2 35ml purulent output. Right lower incision with staple, with purulent drainage, applied new gauze, patient denies pain. Colostomy pouch changed, liquids stool. Wound consult place for Right lower abdomen incision with redness and oozing drainage from incision site. Will endorse to oncoming RN to follow up with surgery regarding right lower abdomen incision.
[2021-02-13 07:10] LABS: BILIRUBIN,TOTAL 0.3 mg/dL (0.2-1.0); CALCIUM, SERUM 7.6 mg/dL (8.5-10.1); CREATININE 1.3 mg/dL (0.6-1.3); MAGNESIUM 1.9 mg/dL (1.8-2.4); PHOSPHORUS 3.9 mg/dL (2.5-4.9); POTASSIUM 3.1 mmol/L (3.5-5.1); TOTAL PROTEIN, SERUM 5.4 g/dL (6.4-8.2)
[2021-02-13 07:17] LABS: ALBUMIN 1.1 g/dL (3.4-5.0)
--- NOTE | 2021-02-13 07:55 | NUR ---
COMPENSATOR OPENING NOTE RECEIVED PATIENT LYING IN BED, RESTING. EASY TO AROUSE. A/O X4. STABLE ON ROOM AIR - NO SOB OR DISTRESS NOTED. NO C/O OF PAIN AT THIS TIME. IV ACCESS TO RIGHT UPPER ARM - PICC LINE - NO FLUIDS RUNNING. ZACARIAS CATHETER NOTED - IN PLACE AND PATENT, DRAINING CLEAR, YELLOW URINE TO GRAVITY. COLOSTOMY BAG NOTED ON LEFT ABDOMINAL AREA, WITH CLEAN BAG INTACT, NO LEAKAGE. TWO BENITA DRAINS NOTED ON THE RIGHT ABDOMEN, NO DRAINAGE NOTED. INCISION SITE WITH CLEAN DRESSING NOTED. SAFETY MEASURES IN PLACE. CALL LIGHT WITHIN REACH. WILL CONTINUE TO MONITOR.
[2021-02-13] MEDS ORDERED: POTASSIUM CHLORIDE 20 MEQ TAB.PRT.SR PO ONE ×2 (08:00→16:00)
[2021-02-13] MEDS: PANTOPRAZOLE 40 MG TABLET.DR PO SCH (08:16)
[2021-02-13] MEDS: ENSURE CLEAR 237 ML LIQUID (MIX BERRY) PO SCH ×3 (08:48→16:04)
[2021-02-13] MEDS: ALBUTEROL FS 2.5 MG/0.5 ML VIAL.NEB NEB SCH ×2 (08:49→15:22)
[2021-02-13 09:28] LABS: BAND % (MANUAL) 4 % (0.0-5.0); EOSINOPHILS % (MANUAL) 1 % (0-4); LYMPHOCYTES % (MANUAL) 6 % (16-48); MONOCYTES % (MANUAL) 9 % (0-11.0); MYELOCYTES % 1 % (0-0); NEUTROPHILS % (MANUAL) 79 (42-76)
[2021-02-13 09:51] VITALS: BP 124/68
[2021-02-13] MEDS: CEFEPIME 2 GM in IV D5W 100 ML IV SCH ×2 (10:51→23:06)
[2021-02-13] MEDS ORDERED: Magnesium 1GM/D5W 100ML PREMIX 100 ML IV SCH (11:30)
[2021-02-13] MEDS: IV NS 0.9% 250 ML IV PRN (13:10)
[2021-02-13 16:35] VITALS: BP 122/64
--- NOTE | 2021-02-13 18:53 | NUR ---
SAW MAN CLOSING NOTE PATIENT CURRENTLY LYING IN BED, WATCHING TV. A/O X4. STABLE ON ROOM AIR - NO SOB OR DISTRESS NOTED. NO C/O OF PAIN AT THIS TIME. IV ACCESS TO RIGHT UPPER ARM - PICC LINE - RUNNING NS @ 10ML/HR TKO. ZACARIAS CATHETER NOTED - IN PLACE AND PATENT, DRAINING CLEAR, YELLOW URINE TO GRAVITY. COLOSTOMY BAG NOTED ON LEFT ABDOMINAL AREA, WITH CLEAN BAG INTACT, NO LEAKAGE. TWO BENITA DRAINS NOTED ON THE RIGHT ABDOMEN - OUTPUT FROM ONLY ONE. INCISION SITE WITH CLEAN DRESSING NOTED - INCISION HAS DRAINAGE. SAFETY MEASURES IN PLACE. CALL LIGHT WITHIN REACH. WILL ENDORSE TO DRILL GRINDER NURSE FOR DANIAL.
--- NOTE | 2021-02-13 19:37 | NUR ---
MS RN NOTES PATIENT CURRENTLY LYING IN BED, WATCHING TV. A/O X4. STABLE ON ROOM AIR - NO SOB OR DISTRESS NOTED. NO C/O OF PAIN AT THIS TIME. IV ACCESS TO RIGHT UPPER ARM - PICC LINE - RUNNING NS @ 10ML/HR TKO. ZACARIAS CATHETER NOTED - IN PLACE AND PATENT, DRAINING CLEAR, YELLOW URINE TO GRAVITY. COLOSTOMY BAG NOTED ON LEFT ABDOMINAL AREA, WITH CLEAN BAG INTACT, NO LEAKAGE. TWO BENITA DRAINS NOTED ON THE RIGHT ABDOMEN INCISION SITE WITH CLEAN DRESSING NOTED - INCISION HAS DRAINAGE. SAFETY MEASURES IN PLACE. CALL LIGHT WITHIN REACH. WILL CONTINUE TO MONITOR.
[2021-02-13 20:00] VITALS: BP 119/69
[2021-02-14] MEDS: ALBUTEROL FS 2.5 MG/0.5 ML VIAL.NEB NEB SCH ×4 (00:30→23:22)
[2021-02-14] MEDS: BLOOD SUGAR DIAGNOSTIC 1 EACH STRIP IN SCH ×4 (05:51→23:55)
[2021-02-14 06:03] LABS: BASOPHILS # (AUTO) 0.1 K/uL (0.0-0.2); BASOPHILS % (AUTO) 0.7 % (0.0-2.0); EOSINOPHILS % (AUTO) 1.5 % (0.0-6.0); HEMATOCRIT 24 % (33-45); HEMOGLOBIN 8.1 g/dL (11.5-14.8); LYMPHOCYTES # (AUTO) 0.8 K/uL (0.8-4.8); LYMPHOCYTES % (AUTO) 4.8 % (20.0-44.0); MEAN CORPUSCULAR HGB CONC 33 g/dl (31.0-36.0); MEAN CORPUSCULAR VOLUME 91 fL (82-100); MONOCYTES # (AUTO) 1.3 K/uL (0.1-1.30); NEUTROPHILS # (AUTO) 13.7 K/uL (1.8-8.9); PLATELET COUNT (AUTO) 637 K/uL (150-450); RED BLOOD CELL COUNT(AUTO) 2.69 MIL/uL (4.0-5.2); WHITE BLOOD COUNT (AUTO) 16.1 K/uL (4.3-11.0)
--- NOTE | 2021-02-14 06:31 | NUR ---
MS RN NOTES PATIENT CURRENTLY LYING IN BED, WATCHING TV. A/O X4. STABLE ON ROOM AIR - NO SOB OR DISTRESS NOTED. NO C/O OF PAIN AT THIS TIME. IV ACCESS TO RIGHT UPPER ARM - PICC LINE SALINE LOCKED. BENITA DRAIN 3 1 WITH NO DRAINAGE BENITA DRAIN #2 WITH 10ML OF DRAINAGE. SURGICAL INCISION DRESSING CHANGED NOTED WITH PURULENT DRAINAGE. COLOSTOMY BAG CHANGED. AL DUE MEDS GIVEN AND TOLERATED WELL. SAFETY MEASURES IN PLACE. CALL LIGHT WITHIN REACH. WILL ENDORSE CARE TO DAY SHIFT.
[2021-02-14 07:07] LABS: CALCIUM, SERUM 7.6 mg/dL (8.5-10.1); CREATININE 1.1 mg/dL (0.6-1.3); MAGNESIUM 1.8 mg/dL (1.8-2.4); PHOSPHORUS 3.7 mg/dL (2.5-4.9); POTASSIUM 2.9 mmol/L (3.5-5.1)
[2021-02-14] MEDS: PANTOPRAZOLE 40 MG TABLET.DR PO SCH (08:13)
[2021-02-14] MEDS: ENSURE CLEAR 237 ML LIQUID (MIX BERRY) PO SCH ×3 (08:13→16:53)
[2021-02-14 08:42] VITALS: BP 123/66
[2021-02-14 08:57] LABS: BAND % (MANUAL) 6 % (0.0-5.0); EOSINOPHILS % (MANUAL) 2 % (0-4); LYMPHOCYTES % (MANUAL) 10 % (16-48); METAMYELOCYTES % 1 % (0-0); MONOCYTES % (MANUAL) 6 % (0-11.0); MYELOCYTES % 1 % (0-0); NEUTROPHILS % (MANUAL) 74 (42-76)
--- NOTE | 2021-02-14 10:00 | NUR ---
m/s cocoa bean cleaner: notes p.t. eval done at bedside, pt sat in a chair for 15 minutes per p.t. aide. transferred back to bed after tx.
[2021-02-14] MEDS: CEFEPIME 2 GM in IV D5W 100 ML IV SCH ×2 (10:41→23:14)
[2021-02-14] MEDS ORDERED: POTASSIUM CHLORIDE 20 MEQ TAB.PRT.SR PO ONE (11:00)
[2021-02-14] MEDS: MORPHINE SULFATE INJ 2 MG/ML DISP.SYRIN IV PRN (11:30)
--- NOTE | 2021-02-14 11:40 | NUR ---
m/s benefits director: f/u surgeon dr. barba at bedside and removed the annabelle on the abdominal incision and then packed it with kerlix with betadine, sarah well. pt was given morphine 2mg ivp by rn prior to tx. will continue to monitor. Addendum: 02/14/21 at 1501 by JOYCELYN IZAGUIRRE TRAFFIC II MANAGER Colostomy functional with reddish brown liquid noted, dr. barba aware.
[2021-02-14] MEDS: INSULIN REGULAR, HUMAN 100 UNIT/ML 3 ML VIAL SQ PRN (11:56)
--- NOTE | 2021-02-14 12:00 | NUR ---
m/s psychometrist: notes received tx order from dr. barba on Wound location of right lower quadrant with Instructions <wet> moist packing change daily with 0.125% Dakins and kerlix, cover with dry dressing, (wound is in the abdominal wall and tracks to the pubic bone, and to the, left side but does not enter the abdomen). order acknowledged.
--- NOTE | 2021-02-14 14:00 | NUR ---
m/s ophthalmic technologist: notes sounds asleep at this time. no distress noted. will continue to monitor.
[2021-02-14 16:41] VITALS: BP 114/64
--- NOTE | 2021-02-14 17:10 | NUR ---
m/s gas meter reader: notes tanvi drain still with purulent drainage with 25ml. colostomy functional emptied 30ml of reddish brown liquid. dinner served. hob elevated. no c/o pain or any discomfort. instructed to call for assistance. will continue to monitor.
--- NOTE | 2021-02-14 19:00 | NUR ---
m/s flat knitter helper: notes report given to brandy (rn) for continuity of care.
--- NOTE | 2021-02-14 19:14 | NUR ---
MS RN NOTES PATIENT CURRENTLY LYING IN BED, WATCHING TV. A/O X4. STABLE ON ROOM AIR - NO SOB OR DISTRESS NOTED. NO C/O OF PAIN AT THIS TIME. IV ACCESS TO RIGHT UPPER ARM - PICC LINE SALINE LOCKED. NOTED WITH TWO BENITA DRAIN ON THE RIGHT SIDE OF ABDOMEN. SURGICAL INCISION DRESSING INTACT. COLOSTOMY BAG INTACT. ALL NURSING NEEDS MET AT THIS TIME.SAFETY MEASURES IN PLACE. CALL LIGHT WITHIN REACH. WILL CONTINUE TO MONITOR.
[2021-02-14 20:00] VITALS: BP 121/62
[2021-02-15] MEDS: BLOOD SUGAR DIAGNOSTIC 1 EACH STRIP IN SCH ×3 (05:59→17:03)
[2021-02-15 06:29] LABS: BASOPHILS # (AUTO) 0.2 K/uL (0.0-0.2); BASOPHILS % (AUTO) 1.1 % (0.0-2.0); EOSINOPHILS % (AUTO) 2.1 % (0.0-6.0); HEMATOCRIT 24 % (33-45); HEMOGLOBIN 8.2 g/dL (11.5-14.8); LYMPHOCYTES # (AUTO) 0.7 K/uL (0.8-4.8); LYMPHOCYTES % (AUTO) 4.8 % (20.0-44.0); MEAN CORPUSCULAR HGB CONC 34 g/dl (31.0-36.0); MEAN CORPUSCULAR VOLUME 92 fL (82-100); MONOCYTES # (AUTO) 1.3 K/uL (0.1-1.30); MONOCYTES % (AUTO) 8.8 % (2.0-12.0); NEUTROPHILS # (AUTO) 12.4 K/uL (1.8-8.9); NEUTROPHILS % (AUTO) 83.2 % (43.0-81.0); PLATELET COUNT (AUTO) 603 K/uL (150-450); RED BLOOD CELL COUNT(AUTO) 2.66 MIL/uL (4.0-5.2); WHITE BLOOD COUNT (AUTO) 14.9 K/uL (4.3-11.0)
--- NOTE | 2021-02-15 06:36 | NUR ---
MS RN NOTES PATIENT CURRENTLY LYING IN BED, WATCHING TV. A/O X4. STABLE ON ROOM AIR - NO SOB OR DISTRESS NOTED. NO C/O OF PAIN AT THIS TIME. IV ACCESS TO RIGHT UPPER ARM - PICC LINE SALINE LOCKED. NOTED WITH TWO BENITA DRAIN ON THE RIGHT SIDE OF ABDOMEN. BENITA #1 NO OUTPUT, BENITA# 2 NOTED WITH 10 ML OF YELLOW OUTPUT .SURGICAL INCISION DRESSING INTACT. COLOSTOMY BAG INTACT PT NOTED WITH RED BROWN STOOL .ALL NURSING NEEDS MET AT THIS TIME. DUE MEDS GIVEN AND TOLERATED WELL.SAFETY MEASURES IN PLACE. CALL LIGHT WITHIN REACH. WILL ENDORSE CARE TO DAY SHIFT NURSE.
[2021-02-15 06:52] LABS: BILIRUBIN,TOTAL 0.3 mg/dL (0.2-1.0); CALCIUM, SERUM 7.9 mg/dL (8.5-10.1); CREATININE 1.1 mg/dL (0.6-1.3); MAGNESIUM 1.5 mg/dL (1.8-2.4); PHOSPHORUS 3.5 mg/dL (2.5-4.9); TOTAL PROTEIN, SERUM 5.7 g/dL (6.4-8.2)
[2021-02-15 07:04] LABS: ALBUMIN 1.2 g/dL (3.4-5.0)
[2021-02-15] MEDS: ALBUTEROL FS 2.5 MG/0.5 ML VIAL.NEB NEB SCH ×3 (07:35→23:30)
[2021-02-15 08:00] VITALS: BP 118/64
[2021-02-15] MEDS: PANTOPRAZOLE 40 MG TABLET.DR PO SCH (08:42)
[2021-02-15] MEDS: ENSURE CLEAR 237 ML LIQUID (MIX BERRY) PO SCH ×3 (08:42→16:25)
--- NOTE | 2021-02-15 08:55 | NUR ---
WOUND CARE CONSULT: PT PRESENTS WITH ABDOMINAL SURGICAL DRESSINGS WHICH ARE DRY AND INTACT, OSTOMY WITH LIQUID BROWN DRAINAGE IN POUCH AND BENITA DRAINS X 2. PT FOLLOWED BY SURGICAL TEAM. DEFER TO SURGICAL TEAM FOR WOUND TREATMENT PLAN. PT IS ABLE TO TURN AND REPOSITION WITH ENCOURAGEMENT. HEELS FLOATED. ZACARIAS CATH NOTED. SKIN PROTECTION DISCUSSED WITH NURSING STAFF. MD IN AGREEMENT WITH PLAN OF CARE.
[2021-02-15 09:10] LABS: BAND % (MANUAL) 1 % (0.0-5.0); EOSINOPHILS % (MANUAL) 1 % (0-4); LYMPHOCYTES % (MANUAL) 4 % (16-48); METAMYELOCYTES % 1 % (0-0); MONOCYTES % (MANUAL) 9 % (0-11.0); MYELOCYTES % 1 % (0-0); NEUTROPHILS % (MANUAL) 83 (42-76)
--- NOTE | 2021-02-15 10:19 | NUR ---
m/s communications writer: md visit seen and examined by dr. mcdowell with order. order acknowledged.
[2021-02-15] MEDS: POTASSIUM CHLORIDE 20 MEQ TAB.PRT.SR PO SCH ×3 (10:20→12:36)
[2021-02-15] MEDS: Magnesium 1GM/D5W 100ML PREMIX 100 ML IV SCH ×2 (10:38→11:36)
--- NOTE | 2021-02-15 11:00 | NUR ---
m/s interior assemblies installer: notes pt did better with p.t. tx today, pt sat for 30 minutes in chair then returned safely back to bed with assistance from jovanny (risa yeager).
[2021-02-15] MEDS: DAKINS QUARTER STRENGTH (0.125%) 480 ML BOTTLE TOP SCH (11:02)
[2021-02-15] MEDS: MORPHINE SULFATE INJ 2 MG/ML DISP.SYRIN IV PRN (11:10)
--- NOTE | 2021-02-15 11:15 | NUR ---
m/s hematologist: f/u surgeon seen and examined by graciela (jose) with order to collect culture from abdominal wall wound and fluid. lab called to pick specimen, spoke to
--- NOTE | 2021-02-15 11:30 | NUR ---
m/s superintendent job: notes tx done to abdominal wall wound, but pt unable to tolerate it well, unable to pack kerlix more down to pubic bone and more down to left side due to severe pain despite morphine 2mg given by rn at 1110. will continue to monitor. instructed to call for assistance.
[2021-02-15] MEDS: CEFEPIME 2 GM in IV D5W 100 ML IV SCH ×2 (12:38→23:48)
[2021-02-15 16:00] VITALS: BP 116/74
--- NOTE | 2021-02-15 19:00 | NUR ---
m/s marketing program manager: notes report given to issa (rn) for continuity of care.
[2021-02-15 20:00] VITALS: BP 113/72
--- NOTE | 2021-02-15 20:00 | NUR ---
MS RN OPENING NOTES PATIENT AWAKE IN BED, ALERT/ORIENTED X 3, NO COMPLAINTS OF PAIN. PT STABLE ON ROOM AIR, NO S/S OF DISTRESS OR SOB NOTED. SURGICAL DRESSING CLEAN, DRY AND INTACT, NO SIGNS OF BLEEDING. RIGHT UPPER ARM PICC LINE INTACT AND FLUSHES WELL. ZACARIAS CATH INTACT AND DRAINING WELL, COLOSTOMY INTACT, BENITA #1 INTACT, BENITA #2 INTACT. SAFETY MEASURES IN PLACE, CALL LIGHT AND TABLE WITHIN REACH, BED ALARM ON, SIDE RAILS UP X 2, BED LOCKED IN LOWEST POSITION. WILL CONTINUE TO MONITOR
[2021-02-16] MEDS: BLOOD SUGAR DIAGNOSTIC 1 EACH STRIP IN SCH ×5 (00:43→23:38)
[2021-02-16 06:44] LABS: BASOPHILS # (AUTO) 0.2 K/uL (0.0-0.2); BASOPHILS % (AUTO) 1.2 % (0.0-2.0); EOSINOPHILS % (AUTO) 2.7 % (0.0-6.0); HEMATOCRIT 23 % (33-45); HEMOGLOBIN 7.8 g/dL (11.5-14.8); LYMPHOCYTES # (AUTO) 0.7 K/uL (0.8-4.8); LYMPHOCYTES % (AUTO) 5.8 % (20.0-44.0); MEAN CORPUSCULAR HGB CONC 34 g/dl (31.0-36.0); MEAN CORPUSCULAR VOLUME 92 fL (82-100); MONOCYTES # (AUTO) 1.1 K/uL (0.1-1.30); MONOCYTES % (AUTO) 8.9 % (2.0-12.0); NEUTROPHILS # (AUTO) 10.5 K/uL (1.8-8.9); NEUTROPHILS % (AUTO) 81.4 % (43.0-81.0); PLATELET COUNT (AUTO) 560 K/uL (150-450); RED BLOOD CELL COUNT(AUTO) 2.52 MIL/uL (4.0-5.2); WHITE BLOOD COUNT (AUTO) 12.9 K/uL (4.3-11.0)
[2021-02-16 06:52] LABS: CREATININE 1.1 mg/dL (0.6-1.3); POTASSIUM 3.2 mmol/L (3.5-5.1)
--- NOTE | 2021-02-16 07:00 | NUR ---
MS RN CLOSING NOTES PATIENT AWAKE IN BED WATCHING TV, ALERT/ORIENTED X 3, NO COMPLAINTS OF PAIN. PT STABLE ON ROOM AIR, NO S/S OF DISTRESS OR SOB NOTED. SURGICAL DRESSING CLEAN, DRY AND INTACT, NO SIGNS OF BLEEDING. RIGHT UPPER ARM PICC LINE INTACT AND FLUSHES WELL. ZACARIAS CATH INTACT WITH OUTPUT OF 2000 ML. COLOSTOMY INTACT, OUTPUT OF 15 ML, BROWN RED. BENITA #1 OUTPUT OF 5 ML, BENITA #2 OUTPUT 20 ML, PURULENT. MEDICATIONS GIVEN ORDERED. PT NEEDS MET THROUGHOUT SHIFT. SAFETY MEASURES IN PLACE, CALL LIGHT AND TABLE WITHIN REACH, BED ALARM ON, SIDE RAILS UP X 2, BED LOCKED IN LOWEST POSITION. WILL ENDORSE TO DAY SHIFT NURSE FOR CONTINUITY OF CARE
[2021-02-16] MEDS: ALBUTEROL FS 2.5 MG/0.5 ML VIAL.NEB NEB SCH ×3 (07:35→23:30)
[2021-02-16] MEDS: PANTOPRAZOLE 40 MG TABLET.DR PO SCH (07:58)
[2021-02-16 08:00] VITALS: BP 124/75
[2021-02-16] MEDS ORDERED: POTASSIUM CHLORIDE 20 MEQ TAB.PRT.SR PO ONE (08:00)
--- NOTE | 2021-02-16 08:00 | NUR ---
RN OPENING NOTE PT AWAKE IN BED RESTING. CURRENT ON RA WITH NO SOB OR RESPIRATORY DISTRESS PRESENT. A/O X4 AND TELUGU SPEAKING. NO PUPIL PERSONNEL SERVICES DIRECTOR PRESENT. NO EDEMA PRESENT. COLOSTOMY PRESENT AND DRAINING WITH BROWN STOOL PRESENT. F/C PRESENT. SURGICAL INCISION PRESENT ON R LOW ABD AND WOUND CARE ORDERED. TYRELL PICC LINE PRESENT. LABS AND ORDERS REVIEWED. SAFETY MEASURES IN PLACE. SIDE RAILS RAISED. BED LOWERED. CALL LIGHT WITHIN REACH. WILL CONTINUE TO MONITOR.
[2021-02-16] MEDS: ENSURE CLEAR 237 ML LIQUID (MIX BERRY) PO SCH ×3 (09:22→16:21)
[2021-02-16 09:31] LABS: BAND % (MANUAL) 1 % (0.0-5.0); EOSINOPHILS % (MANUAL) 1 % (0-4); LYMPHOCYTES % (MANUAL) 7 % (16-48); METAMYELOCYTES % 1 % (0-0); MONOCYTES % (MANUAL) 11 % (0-11.0); MYELOCYTES % 4 % (0-0); NEUTROPHILS % (MANUAL) 75 (42-76)
[2021-02-16] MEDS: DAKINS QUARTER STRENGTH (0.125%) 480 ML BOTTLE TOP SCH (09:39)
--- NOTE | 2021-02-16 10:00 | NUR ---
RN NOTE PT F/C REMOVED PER MD ORDER. PT ABLE TO VOID TO BEDPAN. WILL CONTINUE TO MONITOR
[2021-02-16] MEDS: MORPHINE SULFATE INJ 2 MG/ML DISP.SYRIN IV PRN (13:47)
[2021-02-16 15:59] VITALS: BP 121/59
[2021-02-16 17:03] LABS: BILIRUBIN,URINE NEGATIVE (NEGATIVE); COLOR,URINE YELLOW (YELLOW); LEUKOCYTE ESTERASE ,URINE MODERATE (NEGATIVE); NITRITE, URINE NEGATIVE (NEGATIVE); PROTEIN,URINE TRACE mg/dl (NEGATIVE); UGLUCOSE NEGATIVE (NEGATIVE); UROBILINOGEN,URINE 0.2 EU/dL (0.2)
[2021-02-16 17:06] LABS: BACTERIA,URINE 1+ /HPF (None Seen); SQUAMOUS EPITHELIAL CELL,UR Few /HPF (None Seen); WBC,URINE TOO NUMEROUS TO COUN /HPF (0-3); YEAST,URINE Moderate /HPF (None Seen)
--- NOTE | 2021-02-16 19:38 | NUR ---
RN CLOSING NOTE PT AWAKE IN BED RESTING. CURRENT ON RA WITH NO SOB OR RESPIRATORY DISTRESS PRESENT. A/O X4 AND BULGARIAN SPEAKING. NO PERSONAL CARE ATTENDANT PRESENT. NO EDEMA PRESENT. COLOSTOMY PRESENT AND DRAINING WITH BROWN STOOL PRESENT. F/C PRESENT. SURGICAL INCISION PRESENT ON R LOW ABD AND WOUND CARE ORDERED. TYRELL PICC LINE PRESENT. LABS AND ORDERS REVIEWED. SAFETY MEASURES IN PLACE. SIDE RAILS RAISED. BED LOWERED. CALL LIGHT WITHIN REACH. REPORT GIVEN TO NIGHT NURSE FOR DANIAL.
[2021-02-16 20:00] VITALS: BP 127/63
--- NOTE | 2021-02-16 20:00 | NUR ---
RN NOTES RECEIVED PATIENT AWAKE ON HER BED, A/OX3M [address], WITH COLOSTOMY BAG, DENIES PAIN, NO SOB, CALL LIGHT WITHIN REACH, [id number], PT. NEEDS ATTENDED
--- NOTE | 2021-02-16 23:15 | NUR ---
RN NOTES patient asked for Tylenol for sleeping, got an order from Gerardo Phillips -AYDEN Tylenol 650mg po, order noted and carried out
[2021-02-16] MEDS ORDERED: ACETAMINOPHEN 325 MG TABLET PO ONE (23:30)
[2021-02-17] MEDS: BLOOD SUGAR DIAGNOSTIC 1 EACH STRIP IN SCH ×3 (06:20→18:00)
--- NOTE | 2021-02-17 06:27 | NUR ---
RN NOTES AWAKE, DENIES PAIN [address], NOT IN DISTRESS, DENIES PAIN, CALL LIGH WITHIN REACH, [id number], PT. NEEDS ATTENDED
[2021-02-17 07:00] LABS: BASOPHILS # (AUTO) 0.2 K/uL (0.0-0.2); EOSINOPHILS % (AUTO) 2.3 % (0.0-6.0); HEMATOCRIT 23 % (33-45); HEMOGLOBIN 7.7 g/dL (11.5-14.8); LYMPHOCYTES # (AUTO) 1.1 K/uL (0.8-4.8); LYMPHOCYTES % (AUTO) 6.9 % (20.0-44.0); MEAN CORPUSCULAR HGB CONC 34 g/dl (31.0-36.0); MEAN CORPUSCULAR VOLUME 93 fL (82-100); MONOCYTES # (AUTO) 1.3 K/uL (0.1-1.30); MONOCYTES % (AUTO) 8.3 % (2.0-12.0); NEUTROPHILS # (AUTO) 13.2 K/uL (1.8-8.9); NEUTROPHILS % (AUTO) 81.5 % (43.0-81.0); PLATELET COUNT (AUTO) 515 K/uL (150-450); RED BLOOD CELL COUNT(AUTO) 2.44 MIL/uL (4.0-5.2); WHITE BLOOD COUNT (AUTO) 16.2 K/uL (4.3-11.0)
--- NOTE | 2021-02-17 07:12 | NUR ---
MS RN OPENING NOTE PATIENT ALERT AND ORIENTED X4. WITH EVEN AND UNLABORED BREATHING ON ROOM AIR WITH NO SIGNS OF DISTRESS. WITH PICC LINE ON RIGHT AC, INTACT AND PATENT. WITH COLOSTOMY BAG ON LEFT ABDOMINAL AREA, WITH BAG INTACT, NO LEAKAGE. WITH 2 BENITA DRAINS ON THE RIGHT ABDOMEN, MAINTAINED ON NEGATIVE PRESSURE. SAFETY MEASURES IN PLACE BED DOWN LOCKED CALL LIGHT WITHIN REACH. ABLE TO MAKE NEEDS KNOWN. WILL CONTINUE TO MONITOR PATIENT.
[2021-02-17] MEDS: ALBUTEROL FS 2.5 MG/0.5 ML VIAL.NEB NEB SCH ×3 (07:35→23:30)
[2021-02-17 07:52] LABS: CALCIUM, SERUM 8.3 mg/dL (8.5-10.1); CREATININE 1.3 mg/dL (0.6-1.3); MAGNESIUM 1.8 mg/dL (1.8-2.4); POTASSIUM 3.5 mmol/L (3.5-5.1)
[2021-02-17 08:00] VITALS: BP 119/64
[2021-02-17] MEDS: ENSURE CLEAR 237 ML LIQUID (MIX BERRY) PO SCH ×3 (09:51→17:00)
[2021-02-17] MEDS: PANTOPRAZOLE 40 MG TABLET.DR PO SCH (09:51)
[2021-02-17] MEDS: DAKINS QUARTER STRENGTH (0.125%) 480 ML BOTTLE TOP SCH (09:51)
[2021-02-17] MEDS: FLUCONAZOLE (100 MG) 100 MG TABLET PO SCH (11:15)
[2021-02-17] MEDS: POTASSIUM CL. PREMIX PERIPHER. 50 ML IV SCH ×2 (12:37→13:42)
[2021-02-17 12:42] LABS: ABG BASE EXCESS -8.2 mmol/L; ABG PCO2 28.7 mmHg (35.0-45.0); ABG PH 7.369 (7.350-7.450); ABG PO2 93.8 mmHg (75.0-100.0); AaDO2 21.6 mmHg; COHb 0.4 % (0.5-1.5); MetHb 0.3 % (0.0-1.5); O2Hb 96.3 % (94.0-97.0); SITE, ABG Right Brachial; VENT MODE, BG ROOM AIR
[2021-02-17 15:00] VITALS: BP 115/71
--- NOTE | 2021-02-17 18:50 | NUR ---
MS RN CLOSING NOTE PATIENT ALERT AND ORIENTED X4. WITH EVEN AND UNLABORED BREATHING ON ROOM AIR WITH NO SIGNS OF DISTRESS. WITH PICC LINE ON RIGHT AC, INTACT AND PATENT. WITH COLOSTOMY BAG ON LEFT ABDOMINAL AREA, WITH BAG INTACT, NO LEAKAGE. WITH 2 BENITA DRAINS ON THE RIGHT ABDOMEN, MAINTAINED ON NEGATIVE PRESSURE. SAFETY MEASURES IN PLACE BED DOWN LOCKED CALL LIGHT WITHIN REACH. ABLE TO MAKE NEEDS KNOWN. WILL ENDORSE PATIENT FOR CONTINUITY OF CARE.
--- NOTE | 2021-02-17 19:00 | NUR ---
MS RN OPENING NOTE RECEIVED PATIENT AWAKE IN BED, A/OX4 RESPIRATIONS EVEN AND UNLABORED ON ROOM AIR WITH NO SIGNS OF DISTRESS, PICC LINE IN PLACE TYRELL, INTACT AND PATENT. WITH COLOSTOMY BAG ON LEFT ABDOMINAL AREA, BAG INTACT, NO LEAKAGE. WITH 2 BENITA DRAINS ON THE R ABDOMEN, MAINTAINED ON NEGATIVE PRESSURE. SAFETY MEASURES IN PLACE, BED LOW AND IN LOCKED POSITION.CALL LIGHT AND TABLE WITHIN REACH. ABLE TO MAKE NEEDS KNOWN. WILL CONTINUE TO MONITOR PATIENT.
[2021-02-17] MEDS: ACETAMINOPHEN 325 MG TABLET PO PRN (23:05)
[2021-02-18] VITALS (10 sets, daily range): BP systolic 117–131; BP diastolic 62–73
[2021-02-18] MEDS: BLOOD SUGAR DIAGNOSTIC 1 EACH STRIP IN SCH ×5 (00:54→23:54)
--- NOTE | 2021-02-18 00:54 | NUR ---
BS 94
--- NOTE | 2021-02-18 06:30 | NUR ---
RN CLOSING NOTE PT IS AWAKE IN BED AT THIS TIME. NO SOB OR RESPIRATORY DISTRESS NOTED. PT REMAINED STABLE THROUGHOUT SHIFT, NO PAIN OR DISCOMFORT. IV ACCESS INTACT,PATENT AND FLUSHING WELL. BED IN LOCKED POSITION, CALL LIGHT AND TABLE WITHIN REACH. SIDE RAILS UPX2. SITTER AT BEDSIDE. WILL ENDORSE TO DAY SHIFT NURSE
[2021-02-18 06:48] LABS: CALCIUM, SERUM 8.1 mg/dL (8.5-10.1); CREATININE 1.3 mg/dL (0.6-1.3); MAGNESIUM 1.7 mg/dL (1.8-2.4); PHOSPHORUS 4.1 mg/dL (2.5-4.9); POTASSIUM 3.1 mmol/L (3.5-5.1)
[2021-02-18] MEDS: ALBUTEROL FS 2.5 MG/0.5 ML VIAL.NEB NEB SCH ×3 (07:35→23:26)
[2021-02-18 07:43] LABS: BASOPHILS # (AUTO) 0.1 K/uL (0.0-0.2); BASOPHILS % (AUTO) 0.7 % (0.0-2.0); EOSINOPHILS % (AUTO) 2.2 % (0.0-6.0); LYMPHOCYTES % (AUTO) 9.1 % (20.0-44.0); MEAN CORPUSCULAR HGB CONC 32 g/dl (31.0-36.0); MEAN CORPUSCULAR VOLUME 98 fL (82-100); MONOCYTES # (AUTO) 1.3 K/uL (0.1-1.30); NEUTROPHILS # (AUTO) 8.1 K/uL (1.8-8.9); PLATELET COUNT (AUTO) 530 K/uL (150-450); WHITE BLOOD COUNT (AUTO) 10.7 K/uL (4.3-11.0)
[2021-02-18 07:48] LABS: HEMATOCRIT 20 % (33-45); HEMOGLOBIN 6.3 g/dL (11.5-14.8)
[2021-02-18] MEDS: DAKINS QUARTER STRENGTH (0.125%) 480 ML BOTTLE TOP SCH (09:00)
[2021-02-18] MEDS: ENSURE CLEAR 237 ML LIQUID (MIX BERRY) PO SCH ×3 (09:00→17:00)
[2021-02-18] MEDS ORDERED: POTASSIUM CHLORIDE 20 MEQ TAB.PRT.SR PO ONE (09:00)
[2021-02-18 09:04] LABS: BAND % (MANUAL) 9 % (0.0-5.0); EOSINOPHILS % (MANUAL) 1 % (0-4); LYMPHOCYTES % (MANUAL) 7 % (16-48); MONOCYTES % (MANUAL) 9 % (0-11.0); NEUTROPHILS % (MANUAL) 74 (42-76)
[2021-02-18] MEDS: PANTOPRAZOLE 40 MG TABLET.DR PO SCH (09:34)
[2021-02-18] MEDS: FLUCONAZOLE (100 MG) 100 MG TABLET PO SCH (09:39)
[2021-02-18] MEDS: MORPHINE SULFATE INJ 2 MG/ML DISP.SYRIN IV PRN (09:39)
[2021-02-18] MEDS: Magnesium 1GM/D5W 100ML PREMIX 100 ML IV SCH ×2 (11:04→12:08)
--- NOTE | 2021-02-18 18:55 | NUR ---
MS RN CLOSING NOTE PATIENT ALERT AND ORIENTED X4. WITH EVEN AND UNLABORED BREATHING ON ROOM AIR WITH NO SIGNS OF DISTRESS. WITH PICC LINE ON RIGHT AC, INTACT AND PATENT. WITH COLOSTOMY BAG ON LEFT ABDOMINAL AREA, WITH BAG INTACT, NO LEAKAGE. WITH 2 BENITA DRAINS ON THE RIGHT ABDOMEN, MAINTAINED ON NEGATIVE PRESSURE. PATIENT WITH ONGOING BLOOD TRANSFUSION, TOLERATED WELL WITH NO ADVERSE REACTION NOTED. SAFETY MEASURES IN PLACE BED DOWN LOCKED CALL LIGHT WITHIN REACH. ABLE TO MAKE NEEDS KNOWN. WILL ENDORSE PATIENT FOR CONTINUITY OF CARE.
--- NOTE | 2021-02-18 19:35 | NUR ---
MS RN NOTE PATIENT COMPLETED BLOOD TRANSFUSION WITH NO ADVERSE REACTION NOTED. WITH ORDER FOR H/H 2 HOURS POST BLOOD TRANSFUSION. NOT IN DISTRESS. ENDORSED ACCORDINGLY.
--- NOTE | 2021-02-18 19:38 | NUR ---
MS RN Opening Notes Patient was seen awake resting in bed. Patient is alert and oriented x4. Patient is on room air with no respiratory distress noted. Patient has a TYRELL PICC line, which is intact and patent. Safety measures are kept in place: Bed locked, bed alarm on, side rails up x3, and call light within reach. Will continue to monitor the patient.
[2021-02-18] MEDS: ACETAMINOPHEN 325 MG TABLET PO PRN (20:08)
[2021-02-18 21:54] LABS: HEMOGLOBIN 7.6 g/dL (11.5-14.8)
--- NOTE | 2021-02-18 23:05 | NUR ---
MS RN Notes Patient's blood sugar at 2303 was 72mg/dL. Patient drank some cranberry juice after the blood sugar check. Will continue to monitor the patient.
--- NOTE | 2021-02-19 05:23 | NUR ---
MS RN Notes Patient's blood sugar at 0521 was 95mg/dL. Will continue to monitor the patient.
[2021-02-19] MEDS: BLOOD SUGAR DIAGNOSTIC 1 EACH STRIP IN SCH ×3 (05:51→18:13)
[2021-02-19 06:15] LABS: BASOPHILS # (AUTO) 0.1 K/uL (0.0-0.2); BASOPHILS % (AUTO) 0.9 % (0.0-2.0); EOSINOPHILS % (AUTO) 2.6 % (0.0-6.0); HEMATOCRIT 24 % (33-45); HEMOGLOBIN 8.2 g/dL (11.5-14.8); LYMPHOCYTES # (AUTO) 0.8 K/uL (0.8-4.8); LYMPHOCYTES % (AUTO) 8.6 % (20.0-44.0); MEAN CORPUSCULAR HGB CONC 34 g/dl (31.0-36.0); MEAN CORPUSCULAR VOLUME 90 fL (82-100); MONOCYTES # (AUTO) 1.2 K/uL (0.1-1.30); MONOCYTES % (AUTO) 12.3 % (2.0-12.0); NEUTROPHILS # (AUTO) 7.1 K/uL (1.8-8.9); NEUTROPHILS % (AUTO) 75.6 % (43.0-81.0); PLATELET COUNT (AUTO) 503 K/uL (150-450); RED BLOOD CELL COUNT(AUTO) 2.69 MIL/uL (4.0-5.2); WHITE BLOOD COUNT (AUTO) 9.4 K/uL (4.3-11.0)
[2021-02-19 06:47] LABS: CREATININE 1.6 mg/dL (0.6-1.3); MAGNESIUM 1.9 mg/dL (1.8-2.4); PHOSPHORUS 4.3 mg/dL (2.5-4.9); POTASSIUM 2.9 mmol/L (3.5-5.1)
--- NOTE | 2021-02-19 07:03 | NUR ---
MS RN Closing Notes Patient was seen awake resting in bed. Patient is alert and oriented x4. Patient is on room air with no respiratory distress noted. Patient has a TYRELL PICC line, which is intact and patent. Safety measures are kept in place: Bed locked, bed alarm on, side rails up x3, and call light within reach. Will endorse care to the day shift nurse.
[2021-02-19] MEDS: ALBUTEROL FS 2.5 MG/0.5 ML VIAL.NEB NEB SCH ×2 (07:35→14:22)
[2021-02-19 07:41] VITALS: BP 132/76
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
[2021-02-19] MEDS: FLUCONAZOLE (100 MG) 100 MG TABLET PO SCH (08:23)
[2021-02-19] MEDS: PANTOPRAZOLE 40 MG TABLET.DR PO SCH (08:23)
[2021-02-19] MEDS: ENSURE CLEAR 237 ML LIQUID (MIX BERRY) PO SCH ×3 (08:53→16:40)
[2021-02-19] MEDS: POTASSIUM CHLORIDE 20 MEQ TAB.PRT.SR PO SCH ×3 (08:55→10:54)
[2021-02-19] MEDS: DAKINS QUARTER STRENGTH (0.125%) 480 ML BOTTLE TOP SCH (09:10)
[2021-02-19] MEDS ORDERED: Lactose-Free Food PO (11:40)
[2021-02-19] MEDS ORDERED: FLUC100T8 PO (11:40)
[2021-02-19] MEDS ORDERED: SODI473S8 TOP (11:40)
[2021-02-19] MEDS ORDERED: PANT40TA2 PO (11:40)
[2021-02-19 15:56] VITALS: BP 130/74
--- NOTE | 2021-02-19 17:22 | NUR ---
MS RN NOTES CALLED [facility], SPOKE WITH CARLOS MEYER AND GAVE REPORT
--- NOTE | 2021-02-19 18:20 | NUR ---
MS SURVEILLANCE SYSTEMS ENGINEER NOTES RECEIVED DISCHARGE ORDER FOR PATIENT. ALERT AND ORIENTED X 4. NO SIGNS OR SYMPTOMS OF DISTRESS NOTED. BREATHING IS EVEN AND UNLABORED. NO COMPLAINTS OF PAIN. DISCHARGE SUMMARY REVIEWED WITH PATIENT, VERBALIZED UNDERSTANDING. ALL BELONGINGS ACCOUNTED FOR AND RETURNED. DAUGHTER STEWART AWARE OF TRANSPORTATION TO [facility]. REPORT GIVEN TO CARLOS MEYER AT [facility]. ID BAND REMOVED. PATIENT LEFT AT THIS TIME VIA AMBULANCE, REPORT GIVEN. OBSERVED PATIENT LEAVE UNIT VIA GURNEY.
[2021-02-19] MEDS ORDERED: VORICONAZOLE 200 MG TABLET PO SCH (21:00)
== END 2021-02-19 18:20 | DRG 853 ==
LOC: ER 09:34 → ICU 12:43 → MED 02-07 18:59 → TELE 02-07 19:31 → MED 02-13 08:46
PROVIDERS: ADMIT Nurse Practitioner Acute Care; ATTEND Nurse Practitioner Acute Care
PROC: 02HV33Z Insertion of Infusion Device into Superior Vena Cava, Percutaneous Approach (ICD-10-PCS; 2021-01-31)
PROC: B548ZZA Ultrasonography of Superior Vena Cava, Guidance (ICD-10-PCS; 2021-01-31)
PROC: 0DBN4ZZ Excision of Sigmoid Colon, Percutaneous Endoscopic Approach (ICD-10-PCS; principal; 2021-02-02)
PROC: 0D1N4Z4 Bypass Sigmoid Colon to Cutaneous, Percutaneous Endoscopic Approach (ICD-10-PCS; 2021-02-02)
PROC: 0T778DZ Dilation of Left Ureter with Intraluminal Device, Via Natural or Artificial Opening Endoscopic (ICD-10-PCS; 2021-02-02)
PROC: 0DN84ZZ Release Small Intestine, Percutaneous Endoscopic Approach (ICD-10-PCS; 2021-02-02)
PROC: 0DNU4ZZ Release Omentum, Percutaneous Endoscopic Approach (ICD-10-PCS; 2021-02-02)
PROC: 0DNN4ZZ Release Sigmoid Colon, Percutaneous Endoscopic Approach (ICD-10-PCS; 2021-02-02)
PROC: 0DNW4ZZ Release Peritoneum, Percutaneous Endoscopic Approach (ICD-10-PCS; 2021-02-02)
PROC: 0UN14ZZ Release Left Ovary, Percutaneous Endoscopic Approach (ICD-10-PCS; 2021-02-02)
PROC: 0UN64ZZ Release Left Fallopian Tube, Percutaneous Endoscopic Approach (ICD-10-PCS; 2021-02-02)
PROC: 0DNW0ZZ Release Peritoneum, Open Approach (ICD-10-PCS; 2021-02-02)
PROC: 0UL Female Reproductive System, Occlusion (ICD-10-PCS; 2021-02-02)
PROC: 5A1945Z Respiratory Ventilation, 24-96 Consecutive Hours (ICD-10-PCS; 2021-02-03)
PROC: 0BH17EZ Insertion of Endotracheal Airway into Trachea, Via Natural or Artificial Opening (ICD-10-PCS; 2021-02-03)
PROC: 30233N1 Transfusion of Nonautologous Red Blood Cells into Peripheral Vein, Percutaneous Approach (ICD-10-PCS; 2021-02-04)
DX: A41.9 Sepsis, unspecified organism (principal); E43 Unspecified severe protein-calorie malnutrition; K63.1 Perforation of intestine (nontraumatic); J15.6 Pneumonia due to other Gram-negative bacteria; J96.90 Respiratory failure, unspecified, unspecified whether with hypoxia or hypercapnia; N17.0 Acute kidney failure with tubular necrosis; R65.21 Severe sepsis with septic shock; R57.1 Hypovolemic shock; E87.1 Hypo-osmolality and hyponatremia; D61.818 Other pancytopenia; J90 Pleural effusion, not elsewhere classified; T79.7XXA Traumatic subcutaneous emphysema, initial encounter; J98.11 Atelectasis; N13.30 Unspecified hydronephrosis; K56.600 Partial intestinal obstruction, unspecified as to cause; R64 Cachexia; B37.49 Other urogenital candidiasis; D69.6 Thrombocytopenia, unspecified; E86.1 Hypovolemia; G89.29 Other chronic pain; E83.51 Hypocalcemia; K66.0 Peritoneal adhesions (postprocedural) (postinfection); E83.39 Other disorders of phosphorus metabolism; E83.42 Hypomagnesemia; E87.6 Hypokalemia; X58.XXXA Exposure to other specified factors, initial encounter; Y92.9 Unspecified place or not applicable; D64.9 Anemia, unspecified; Z93.3 Colostomy status; Z98.82 Breast implant status; Z80.0 Family history of malignant neoplasm of digestive organs; Z72.0 Tobacco use; Z20.822 Contact with and (suspected) exposure to COVID-19; B96.20 Unspecified Escherichia coli [E. coli] as the cause of diseases classified elsewhere
CPT/HCPCS: 31720; 36415; 36569; 36600; 71045-TC; 71260-TC; 74018; 80048-TC; 80053-TC; 80061-TC; 80076-TC; 80202-TC; 81001; 82570-TC; 82803-TC; 82962-TC; 83690-TC; 83735-TC; 84100-TC; 84133-TC; 84155; 84165; 84300-TC; 84443-TC; 84478-TC; 85025-TC; 85027-TC; 85730-TC; 86850-TC; 87070-TC; 87075-TC; 87081-TC; 87086-TC; 87186-TC; 88307-TC; 93307-TC; 94002-TC; 94668-TC; 94760-TC; 94799-TC; 97110-TC; 97112-TC; 97530-TC; A4216; A4217; A6209; A6253; A6403; A9563; C9113; G0378; J0330; J0610; J0692; J1100; J1170; J1450; J1815; J1885; J1940; J1956; J2185; J2250; J2270; J2370; J2405; J2543; J2704; J3370; J3475; J3480; J3490; J7030; J7040; J7050; J7060; J7120; P9016; Q9963; Q9967; Q9968